=== PATIENT | female | born 1990 | race Caucasian/White ===

== ENCOUNTER → 2016-09-19 | Day surgery (SDC) | payer OTHER ==
[2016-09-03 13:39] VITALS: Ht 171.5 cm; Wt 68.2 kg
[~2016-09-19] VITALS: Ht 171.5 cm; Wt 68.2 kg
[~2016-09-19] MED LIST: ACET1TAB84 PO; ALBUAER19 INH; BUPIVACAINE 0.25% 2.5MG/ML PF 10 ML VIAL ONE; IBUP-1050 PO; IMD/2 PO; IOPAMIDOL INJ 61% 15 ML VIAL ONE; LIDOCAINE HCL 1% MPF 5 ML VIAL ONE; NAPR1TAB9 PO
--- NOTE | 2016-09-19 14:18 | History & Physical Bridge - [place] ---
H&P Re-Evaluation Bridge Note: I have examined the patient, reviewed the History & Physical and in the interval since the performance of the History & Physical I have noted the following changes of clinical significance: No changes noted
[2016-09-19 14:48] VITALS: TEMP 36.6
--- NOTE | 2016-09-19 14:54 | Discharge Instructions ---
Discharge Instructions Date of Service Sep 19, 2016. Visit Reason for Visit: Sacroiliitis Discharge Discharge Diagnosis / Problem: low back pain Discharge Goals Goal(s): Decrease discomfort, Improve function Activity Recommendations Activity Limitations: resume your previous activity Anesthesia . Post Anesthesia Instructions: If you have had General Anesthesia or IV Sedation: * Do not drive today. * Resume driving when surgeon permits. * Do not make important decisions or sign legal documents today. * Call surgeon for: 1. Temperature elevations greater than 101 degrees F. 2. Uncontrollable pain. 3. Excessive bleeding. 4. Persistent nausea and vomiting. 5. Medication intolerance (nausea, vomiting or rash). * For nausea and vomiting use only clear liquids such as: tea, soda, bouillon until nausea subsides, then gradually increase diet as tolerated. * If you have any concerns or questions, call your surgeon's office. If physician is unavailable and it is an emergency, call 911 or go to the nearest emergency room. . Diet Recommendations Recommended Home Diet: resume previous diet Procedures Procedures Performed: Left Sacroiliac Joint Injection Pending Studies Studies pending at discharge: no Medical Emergencies . Who to Call and When: Medical Emergencies: If at any time you feel your situation is an emergency, please call 911 immediately. . Non-Emergent Contact Non-Emergency issues call your: Specialist . . "Provider Documentation" section prepared by Hayder Linder. .
[2016-09-19 14:58] VITALS: BP 104/68; PULSE 79; O2SAT 97
--- NOTE | 2016-09-19 16:40 | OPERATIVE REPORT ---
DATE OF OPERATION: 09/19/2016 PREOPERATIVE DIAGNOSIS: Left sacroiliitis. POSTOPERATIVE DIAGNOSIS: Same. PROCEDURE: Left sacroiliac joint injection under fluoroscopic guidance. INDICATIONS: The patient is a 26-year-old female who has had sacroiliac pain for a number of years. She presents today for an injection to provide her with relief of the discomfort. PHYSICAL EXAMINATION: Pleasant female seated comfortably. She has point tenderness to palpation in the left SI joint. It is worse with extension and no problems with flexion. Normal motor and sensory examination. Positive Aria maneuver. CONSENT: Verbal and written consent was obtained from the patient. Risks and benefits were reviewed. Risks include, but are not limited to abscess, allergic reaction, and hematoma. The patient wishes to proceed. DESCRIPTION OF PROCEDURE: The patient was taken back to the special procedures room of the [facility], where she was maintained in a prone position. Backside was cleansed with Betadine x3 and a dry sterile dressing was applied. Fluoroscope was used to identify the left SI joint and the overlying skin was anesthetized with 2.5 mL of lidocaine 1% with a 25-gauge 1.5-inch needle. A 25-gauge 3.5-inch spinal needle was easily directed into the joint. Isovue-300 contrast 0.25 mL demonstrated intra-articular placement. She then underwent injection after negative aspiration of 40 mg Depo-Medrol and 1.5 mL of bupivacaine 0.25%. DISPOSITION: 1. The patient was taken out into the discharge recovery area, where she will be discharged home once discharge criteria have been met. 2. Follow up in the [facility] office in 2-4 weeks. I attest to the content of the Intraoperative Record and any orders documented therein. Any exception s are noted below.
== END | disposition home or self-care (01) ==
LOC: X.SURG 13:43
PROVIDERS: ATTEND Physical Medicine & Rehabilitation
DX: M46.1 Sacroiliitis, not elsewhere classified (principal)

== ENCOUNTER → 2016-11-12 | Outpatient (CLI) | payer OTHER ==
[~2016-11-12] MED LIST changes: -BUPIVACAINE 0.25% 2.5MG/ML PF 10 ML VIAL ONE; -IOPAMIDOL INJ 61% 15 ML VIAL ONE; -LIDOCAINE HCL 1% MPF 5 ML VIAL ONE
--- NOTE | 2016-11-12 10:31 | DIAGNOSTIC IMAGING REPORT ---
L-SPINE MIN 4 VIEWS ROUTINE CLINICAL HISTORY: M46.1 [id number] Hypermobility [id number] COMPARISON: None FINDINGS: Alignment of the lumbar spine is anatomic. Vertebral body heights are maintained. There is no fracture or suspicious lesion. Disc spaces are preserved. There is possible facet arthrosis within the lower lumbar spine. There is indistinctness and irregularity of both sacroiliac joints. IMPRESSION: 1. No lumbar spine fracture. 2. No evidence of degenerative disc disease by radiography. 3. Possible multilevel lower lumbar spine facet arthrosis. 4. Findings suggestive of bilateral sacroiliitis. Electronically signed by: Amos Hurtado M.D. 11/12/2016 10:30 AM Dictated Date/Time: 11/12/2016 10:28 AM
--- NOTE | 2016-11-12 10:32 | DIAGNOSTIC IMAGING REPORT ---
SI JOINTS 3 OR MORE VIEWS CLINICAL HISTORY: M46.1 [id number] Hypermobility [id number] COMPARISON STUDY: No previous studies for comparison. FINDINGS: There is indistinctness and irregularity along both sacroiliac joints, slightly greater on the right. No fracture or suspicious lesion is identified. There is indistinctness and irregularity at the symphysis pubis. IMPRESSION: 1. Findings suggestive of bilateral sacroiliitis. 2. Nonspecific irregularity along the symphysis pubis. Electronically signed by: Amos Hurtado M.D. 11/12/2016 10:31 AM Dictated Date/Time: 11/12/2016 10:30 AM
[2016-11-12 14:22] LABS: TOTAL IRON BINDING CAPACITY 317 mcg/dl (250-450)
[2016-11-15 05:09] LABS: ANTI-CENTROMERE AB <1.0 NEG AI (<1.0 NEG); ANTI-SS-A <1.0 NEG AI (<1.0 NEG); ANTI-SS-B <1.0 NEG AI (<1.0 NEG); DNA ds CRITHIDIA NEGATIVE (NEGATIVE); HLA-B27** TC 528X POSITIVE (NEGATIVE); Sm Antibody <1.0 NEG AI (<1.0 NEG)
== END | disposition home or self-care (01) ==
LOC: C.RAD1850 09:31
PROVIDERS: ATTEND Internal Medicine Rheumatology
DX: M25.50 Pain in unspecified joint (principal); M46.1 Sacroiliitis, not elsewhere classified; R19.7 Diarrhea, unspecified

== ENCOUNTER → 2016-11-15 | Outpatient (CLI) | payer OTHER ==
[2016-11-15 13:22] LABS: BASO % 0.1 %; BASO ABS # 0.01 K/uL (0-0.2); COMPLETE YES; EOS % 3.9 %; HEMATOCRIT 40.2 % (37-47); IG% 0.5 %; LYMPH % 22.3 %; LYMPH ABS # 1.98 K/uL (1.2-3.4); MEAN CELL VOLUME 87.2 fL (80-100); MEAN CORPUSCULAR HEMOGLOBIN 28.6 pg (25-34); MEAN CORPUSCULAR HGB CONC 32.8 g/dl (32-36); MEAN PLATELET VOLUME 8.5 fL (7.4-10.4); MONO % 8.2 %; PLATELET COUNT 302 K/uL (130-400); RED BLOOD COUNT 4.61 M/uL (4.2-5.4); WHITE BLOOD COUNT 8.88 K/uL (4.8-10.8)
[2016-11-15 14:04] LABS: ALT/SGPT 30 U/L (12-78); AST/SGOT 18 U/L (15-37); BLOOD UREA NITROGEN 11 mg/dl (7-18); BUN/CREATININE RATIO 16.1 (10-20); C-REACTIVE PROTEIN 1.36 mg/dl (0-0.29); CALCIUM 8.9 mg/dl (8.5-10.1); CARBON DIOXIDE 29 mmol/L (21-32); CHLORIDE 106 mmol/L (98-107); CREATININE 0.71 mg/dl (0.60-1.20); GLUCOSE 79 mg/dl (70-99); POTASSIUM 3.9 mmol/L (3.5-5.1); SODIUM 138 mmol/L (136-145)
[2016-11-15 14:08] LABS: ALKALINE PHOSPHATASE 82 U/L (45-117)
[2016-11-20 00:42] LABS: IGA SERUM 195 mg/dL (81-463); TIS TRANS IGA 1 U/mL (<4); VARICELLA ZOS VIR IGG VALUE >4000.00 INDEX
== END | disposition home or self-care (01) ==
LOC: C.LAB1850 12:07
PROVIDERS: ATTEND Registered Nurse
DX: Z01.84 Encounter for antibody response examination (principal); M46.1 Sacroiliitis, not elsewhere classified

== ENCOUNTER → 2016-11-25 | Day surgery (SDC) | payer OTHER ==
[2016-11-19 10:08] VITALS: Ht 172.7 cm; Wt 68.2 kg
[~2016-11-25] VITALS: Ht 172.7 cm; Wt 68.2 kg
[~2016-11-25] MED LIST changes: +LIDOCAINE HCL 2% 2 ML VIAL (20MG/ML) ONE; +PROPOFOL IV EMULSION 10 MG/ML 20 ML VIAL IV ONE; +SODIUM CHLORIDE 0.9% 500ML 500 ML IV ONE
--- NOTE | 2016-11-25 09:41 | Endo History and Physical ---
History & Physical Date of Service: Nov 25, 2016. Chief Complaint: DIARRHEA Referring Physician: HERNAN BASS History of Present Illness 26 yo CM who presents for colonoscopy secondary to diarrhea. Past Surgical History Hx Cardiac Surgery: No Hx Internal Defibrillator: No Hx Pacemaker: No Hx Abdominal Surgery: No Hx of Implantable Prosthesis: No Hx Cancer Surgery: No Hx Thoracic Surgery: No Hx Orthopedic: No Hx Urinary Tract Surgery: No Family History None Social History Smoking Status: Never Smoker Hx Substance Use: No Hx Alcohol Use: Yes (OCCASIONAL) Allergies Coded Allergies: No Known Allergies (Verified , 11/25/16) Current Medications Reported Home Medications Medications Dose Route/Sig Max Daily Dose Days Date Category Imodium (Loperamide HCl) 2 Mg Cap 2 Mg PO DIRECTED PRN 11/19/16 Reported Aleve (Naproxen) 220 Mg Tab 220 Mg PO DIRECTED PRN 11/19/16 Reported Tylenol Arthritis Ext Rel (Acetaminophen) 650 Mg Cplt 1,300 Mg PO Q8H PRN 12/02/15 Reported Advil (Ibuprofen) 200 Mg Tab 400 Mg PO Q8 PRN 12/02/15 Reported Ventolin Inhaler (Albuterol) Aers 2 Puffs INH QID PRN 12/02/15 Reported Vital Signs Weight (Kilograms): 68.18 Height (Feet): 5 Height (Inches): 8 Date Time Temp Pulse Resp B/P (MAP) Pulse Ox O2 Delivery O2 Flow Rate FiO2 11/25/16 09:31 36.8 85 24 130/77 (94) 99 Room Air Physical Exam General Appearance: WD/WN, no apparent distress Respiratory/Chest: Auscultation: breath sounds normal Cardiovascular: Heart Auscultation: RRR Abdomen: Bowel Sounds: normal Inspection & Palpation: soft, non-distended, no tenderness, guarding & rebound Assessment and Plan Assessment: 26 yo CM who presents for colonoscopy secondary to diarrhea. Plan: Proceed with colonoscopy.
--- NOTE | 2016-11-25 10:11 | Discharge Instructions ---
Endoscopy Patient Instructions Date / Procedure(s) Performed Nov 25, 2016. Colonoscopy Allergy Information Coded Allergies: No Known Allergies (Verified , 11/25/16) Discharge Date / Findings Nov 25, 2016. Terminal ileitis s/p biopsies Ulcerative pancolitis s/p biopsies Rectal polyp Medication Instructions 1) Start Prednisone 40mg by mouth daily for 1 week, then decrease by 5 mg by mouth weekly for 8 week taper 2) OK to resume all medications today as prescribed Reported Home Medications Medications Dose Route/Sig Max Daily Dose Days Date Category Imodium (Loperamide HCl) 2 Mg Cap 2 Mg PO DIRECTED PRN 11/19/16 Reported Aleve (Naproxen) 220 Mg Tab 220 Mg PO DIRECTED PRN 11/19/16 Reported Tylenol Arthritis Ext Rel (Acetaminophen) 650 Mg Cplt 1,300 Mg PO Q8H PRN 12/02/15 Reported Advil (Ibuprofen) 200 Mg Tab 400 Mg PO Q8 PRN 12/02/15 Reported Ventolin Inhaler (Albuterol) Aers 2 Puffs INH QID PRN 12/02/15 Reported Provider Instructions Activity Restrictions - No exercising or heavy lifting for 24 hours. - Do not drink alcohol the day of the procedure. - Do not drive a car or operate machinery until the day after the procedure. - Do not make any important decisions or sign important papers in 24 hours after the procedure. Following Day: - Return to full activity which may include returning to work/school. Diet Start your diet with liquids and light foods (jello, soup, juice, toast). Then eat your usual diet if not nauseated. Treatment For Common After Affects For mild abdominal pain, bloating, or excessive gas: - Rest - Eat lightly - Lie on right side Follow-Up Information Follow-up with HERNAN BASS as scheduled Anesthesia Information What You Should Know You have had a procedure that required some medicine to reduce anxiety and discomfort. This treatment is called moderate sedation. After receiving the treatment, you may be sleepy, but you will be able to breathe on your own. The effects of the treatment may last for several hours. Follow these instructions along with Activity/Diet recommendations noted above: * Do NOT do anything where dizziness or clumsiness would be dangerous. * Rest quietly at home today, then you can be up and about tomorrow. * Have a responsible person stay with you the rest of today. * You may have had an I.V. today. If so, you may take the dressing off later today. Recommendations Call your doctor if: * Trouble breathing * Continuous vomiting for more than 24 hours * Temperature above 101 degrees * Severe abdominal pain or bloating * Pain not relieved by pain medicine ordered * There is increased drainage or redness from any incision * A large amount of rectal bleeding greater than 2-3 tablespoons. (If you had a polyp/s removed or have hemorrhoids, a small amount of blood - from the rectum is to be expected.) * You have any unanswered questions or concerns. IN THE EVENT OF A SERIOUS EMERGENCY, GO TO THE NEAREST EMERGENCY ROOM Your discharge instructions were prepared by provider Ismael Nur. Patient Instructions Signature Page Gamal Cuellar Patient (or Guardian) Signature/Date: I have read and understand the instructions given to me by my caregivers. Caregiver/RN/Doctor Signature/Date: The above-named patient and/or guardian has received patient instructions on this date. + Original Patient Signature Page (only) stays with chart. Please make copy for patient.
--- NOTE | 2016-11-25 10:33 | Anesthesiology Progress Note ---
Anesthesia Post Op Note Date & Time Nov 25, 2016 at 10:33 Vital Signs Pain Intensity: 7 Vital Signs Past 12 Hours Date Time Temp Pulse Resp B/P (MAP) Pulse Ox O2 Delivery O2 Flow Rate FiO2 11/25/16 10:15 79 16 89/45 (60) 98 Room Air 11/25/16 09:31 36.8 85 24 130/77 (94) 99 Room Air Notes Mental Status: alert / awake / arousable, participated in evaluation Pt Amnestic to Procedure: Yes Nausea / Vomiting: adequately controlled Pain: adequately controlled Airway Patency, RR, SpO2: stable & adequate BP & HR: stable & adequate Hydration State: stable & adequate Anesthetic Complications: no major complications apparent
[2016-11-25 10:48] VITALS: BP 112/76; PULSE 79; O2SAT 98
--- NOTE | 2016-11-26 00:14 | GI REPORT ---
Procedure Date: 11/25/2016 9:47 AM THIS REPORT HAS BEEN AMENDED Addendum Number: 1 Addendum Date: 11/25/2016 10:19:00 AM Will start Prednisone taper: Take 40mg by mouth daily for 1 week, then decrease by 5 mg every week for total 8 week taper. Followup in our office for pre-testing for Remicade therapy. Procedure: Colonoscopy Indications: Chronic diarrhea Medicines: Monitored Anesthesia Care Complications: No immediate complications. Estimated Blood Loss: Estimated blood loss: none. Procedure: Pre-Anesthesia Assessment: - Prior to the procedure, a History and Physical was performed, and patient medications and allergies were reviewed. The patient's tolerance of previous anesthesia was also reviewed. The risks and benefits of the procedure and the sedation options and risks were discussed with the patient. All questions were answered, and informed consent was obtained. Prior Anticoagulants: The patient has taken no previous anticoagulant or antiplatelet agents. ASA Grade Assessment: II - A patient with mild systemic disease. After reviewing the risks and benefits, the patient was deemed in satisfactory condition to undergo the procedure. After I obtained informed consent, the scope was passed under direct vision. Throughout the procedure, the patient's blood pressure, pulse, and oxygen saturations were monitored continuously. The On-site loaner was introduced through the anus and advanced to the terminal ileum. The colonoscopy was performed without difficulty. The patient tolerated the procedure well. The quality of the bowel preparation was good. The terminal ileum, ileocecal valve, appendiceal orifice, and rectum were photographed. Findings: Localized inflammation, mild in severity and characterized by erosions was found in the terminal ileum. Biopsies were taken with a cold forceps for histology. A diffuse area of severely ulcerated mucosa was found in the entire colon. Biopsies were taken with a cold forceps for histology. A 5 mm polyp was found in the rectum. The polyp was sessile. The polyp was removed with a hot snare. Resection and retrieval were complete. Impression: - Ileitis. Biopsied. - Ulcerated mucosa in the entire examined colon. Biopsied. - One 5 mm polyp in the rectum, removed with a hot snare. Resected and retrieved. Recommendation: - Resume previous diet. - Continue present medications. - Repeat colonoscopy for surveillance based on pathology results. - Return to primary care physician as previously scheduled. Ismael Nur DO 11/25/2016 10:15:47 AM This report has been signed electronically. Note Initiated On: 11/25/2016 9:47 AM I attest to the content of the Intraoperative Record and orders documented therein, exceptions below Ismael Nur, 11/25/2016 10:19:59 AM This report has been signed electronically.
== END | disposition home or self-care (01) ==
LOC: C.GI 08:58
PROVIDERS: ATTEND Internal Medicine
DX: K52.9 Noninfective gastroenteritis and colitis, unspecified (principal); K62.1 Rectal polyp

== ENCOUNTER → 2017-01-16 | Outpatient (CLI) | payer OTHER ==
[~2017-01-16] MED LIST changes: -LIDOCAINE HCL 2% 2 ML VIAL (20MG/ML) ONE; -PROPOFOL IV EMULSION 10 MG/ML 20 ML VIAL IV ONE; -SODIUM CHLORIDE 0.9% 500ML 500 ML IV ONE
--- NOTE | 2017-01-16 10:42 | DIAGNOSTIC IMAGING REPORT ---
MRI OF THE SACROILIAC JOINTS WITHOUT IV CONTRAST CLINICAL HISTORY: Sacroiliitis. COMPARISON STUDY: Radiographs of the sacroiliac joints dated 11/12/2016. TECHNIQUE: MRI of the sacroiliac joints is performed utilizing various T1 and T2-weighted sequences in the axial and coronal planes. IV contrast was not administered for this examination. FINDINGS: There is no MRI evidence of fracture involving the sacrum or the visualized pelvis. Sclerotic degenerative change is seen at the sacroiliac joints. There is minimal subchondral cyst formation seen along the superior aspect of the left sacroiliac joint on axial STIR image #14. Only minimal marrow edema is seen within the medial left ilium on axial STIR image #16. Minimal marrow edema is also suggested along the right sacroiliac joint on the coronal images. No bony erosion is identified. No destructive bony lesion is seen. The overlying soft tissues are within normal limits. The pelvic viscera is normal as visualized. IMPRESSION: 1. There is predominantly sclerotic degenerative change seen involving the sacroiliac joints. Only faint marrow edema is identified. 2. No bony erosion is seen. Dictated: 01/16/2017 9:51 AM Transcribed: 01/16/2017 10:41 AM [facility] Electronically signed by: Goivanni Wiley M.D. 01/16/2017 10:42 AM Dictated Date/Time: 01/16/2017 9:51 AM
== END | disposition home or self-care (01) ==
LOC: C.MRI 08:48
PROVIDERS: ATTEND Internal Medicine Rheumatology
DX: M45.8 Ankylosing spondylitis sacral and sacrococcygeal region (principal)

== ENCOUNTER → 2017-04-14 | Outpatient (CLI) | payer OTHER ==
[2017-04-14 17:49] LABS: BASO % 0.2 %; BASO ABS # 0.03 K/uL (0-0.2); EOS % 9.9 %; EOS ABS # 1.46 K/uL (0-0.5); HEMATOCRIT 36.9 % (37-47); HEMOGLOBIN 12.7 g/dL (12.0-16.0); IG# 0.05 K/uL (0.00-0.02); LYMPH % 10.9 %; MEAN CELL VOLUME 85.6 fL (80-100); MEAN CORPUSCULAR HEMOGLOBIN 29.5 pg (25-34); MEAN CORPUSCULAR HGB CONC 34.4 g/dl (32-36); MEAN PLATELET VOLUME 8.3 fL (7.4-10.4); MONO ABS # 0.88 K/uL (0.11-0.59); NEUT % 72.7 %; NEUT ABS # 10.66 K/uL (1.4-6.5); PLATELET COUNT 263 K/uL (130-400); RED CELL DISTRIBUTION WIDTH CV 13.6 % (11.5-14.5); RED CELL DISTRIBUTION WIDTH SD 42.9 fL (36.4-46.3); WHITE BLOOD COUNT 14.68 K/uL (4.8-10.8)
[2017-04-14 18:16] LABS: ALBUMIN 3.3 gm/dl (3.4-5.0); ALT/SGPT 43 U/L (12-78); BLOOD UREA NITROGEN 12 mg/dl (7-18); CALCIUM 8.6 mg/dl (8.5-10.1); CARBON DIOXIDE 28 mmol/L (21-32); GLUCOSE 86 mg/dl (70-99); POTASSIUM 3.3 mmol/L (3.5-5.1); SODIUM 138 mmol/L (136-145)
[2017-04-14 18:19] LABS: ALKALINE PHOSPHATASE 76 U/L (45-117); AST/SGOT 35 U/L (15-37); TOTAL PROTEIN 7.1 gm/dl (6.4-8.2)
== END | disposition home or self-care (01) ==
LOC: C.LAB1850 17:01
PROVIDERS: ATTEND Registered Nurse
DX: R19.7 Diarrhea, unspecified (principal); K51.90 Ulcerative colitis, unspecified, without complications

== ENCOUNTER → 2017-04-16 | Outpatient (CLI) | payer OTHER | END | disposition home or self-care (01) | LOC: C.LABSPEC 08:10 | PROVIDERS: ATTEND Registered Nurse | DX: R19.7 Diarrhea, unspecified (principal); K51.90 Ulcerative colitis, unspecified, without complications ==

== ENCOUNTER → 2017-04-29 | Outpatient (CLI) | payer OTHER ==
[2017-04-29 09:32] LABS: BASO % 0.2 %; BASO ABS # 0.02 K/uL (0-0.2); EOS % 13.2 %; EOS ABS # 1.61 K/uL (0-0.5); HEMATOCRIT 39.2 % (37-47); HEMOGLOBIN 13.3 g/dL (12.0-16.0); IG# 0.04 K/uL (0.00-0.02); LYMPH % 17.6 %; LYMPH ABS # 2.14 K/uL (1.2-3.4); MEAN CELL VOLUME 87.3 fL (80-100); MEAN CORPUSCULAR HEMOGLOBIN 29.6 pg (25-34); MEAN CORPUSCULAR HGB CONC 33.9 g/dl (32-36); MEAN PLATELET VOLUME 8.6 fL (7.4-10.4); MONO % 7.1 %; MONO ABS # 0.86 K/uL (0.11-0.59); NEUT % 61.6 %; NEUT ABS # 7.49 K/uL (1.4-6.5); PLATELET COUNT 275 K/uL (130-400); RED CELL DISTRIBUTION WIDTH CV 14.1 % (11.5-14.5); RED CELL DISTRIBUTION WIDTH SD 44.6 fL (36.4-46.3); WHITE BLOOD COUNT 12.16 K/uL (4.8-10.8)
[2017-04-29 10:03] LABS: ALBUMIN 3.3 gm/dl (3.4-5.0); ALT/SGPT 26 U/L (12-78); BLOOD UREA NITROGEN 6 mg/dl (7-18); CALCIUM 9.1 mg/dl (8.5-10.1); CARBON DIOXIDE 28 mmol/L (21-32); CREATININE 0.67 mg/dl (0.60-1.20); GLUCOSE 98 mg/dl (70-99); POTASSIUM 3.3 mmol/L (3.5-5.1); SODIUM 138 mmol/L (136-145)
[2017-04-29 10:05] LABS: ALKALINE PHOSPHATASE 80 U/L (45-117); AST/SGOT 16 U/L (15-37); TOTAL PROTEIN 7.5 gm/dl (6.4-8.2)
== END | disposition home or self-care (01) ==
LOC: C.LAB1850 08:02
PROVIDERS: ATTEND Registered Nurse
DX: K51.90 Ulcerative colitis, unspecified, without complications (principal)

== ENCOUNTER → 2017-06-30 | Outpatient (CLI) | payer OTHER | END | disposition home or self-care (01) | LOC: C.LAB1850 14:59 | PROVIDERS: ATTEND Registered Nurse | DX: K51.90 Ulcerative colitis, unspecified, without complications (principal) ==

== ENCOUNTER → 2017-07-09 | Outpatient (CLI) | payer OTHER | END | disposition home or self-care (01) | LOC: C.PAPS 10:38 | PROVIDERS: ATTEND Physician Assistant | DX: Z12.4 Encounter for screening for malignant neoplasm of cervix (principal) ==

== ENCOUNTER 2017-08-26 12:34 | Inpatient (IN) | payer OTHER ==
[~2017-08-26] VITALS: Ht 172.7 cm; Wt 65.0 kg
[2017-08-26 13:25] VITALS: BP 129/88; PULSE 114; TEMP 37.1; O2SAT 98; Ht 172.7 cm; Wt 65.0 kg
[2017-08-26] MEDS ORDERED: ALBUTEROL HFA 8 GM INHALER INH PRN (13:30)
[2017-08-26] MEDS ORDERED: SODIUM CHLORIDE 0.9% 1000ML 1,000 ML IV SCH (14:00)
[2017-08-26 14:15] LABS: BASO % 0.2 %; BASO ABS # 0.02 K/uL (0-0.2); EOS % 5.4 %; EOS ABS # 0.52 K/uL (0-0.5); HEMATOCRIT 40.5 % (37-47); IG# 0.04 K/uL (0.00-0.02); LYMPH % 16.2 %; LYMPH ABS # 1.57 K/uL (1.2-3.4); MEAN CELL VOLUME 85.1 fL (80-100); MEAN CORPUSCULAR HEMOGLOBIN 29.4 pg (25-34); MEAN CORPUSCULAR HGB CONC 34.6 g/dl (32-36); MEAN PLATELET VOLUME 8.3 fL (7.4-10.4); MONO % 9.1 %; MONO ABS # 0.88 K/uL (0.11-0.59); NEUT % 68.7 %; NEUT ABS # 6.65 K/uL (1.4-6.5); PLATELET COUNT 277 K/uL (130-400); RED CELL DISTRIBUTION WIDTH CV 13.7 % (11.5-14.5); RED CELL DISTRIBUTION WIDTH SD 42.2 fL (36.4-46.3); WHITE BLOOD COUNT 9.68 K/uL (4.8-10.8)
--- NOTE | 2017-08-26 14:20 | History and Physical ---
History & Physical Date & Time of Service: August 26, 2017 at 14:06 Chief Complaint: Chronic Ulcerative Colitis Primary Care Physician: RV. Jean MD History of Present Illness Source: patient 27yo female with history of GIBSON, Sacroiliitis, ?Ankylosing spoldylitis presenting with GIBSON flare. Symptoms started on , acutely worsened on Friday. Patient reports 15-20 small volume bloody bowel movements/day, diffuse abdominal cramping as well as some nausea and 2 episodes of NB/NB vomiting last of which was last evening. Patient reports oral intolerance and a 10# unintentional weight loss over the last week. Last meal was a sandwich yesterday afternoon. Patient is presently taking Humira every other week and mesalamine BID. She reports adequate control of her joint symptoms with this regimen. She had been on Prednisone in the past and also Budesonide (Uceris) which she also reports good control. Patient was due to see her Organizational Effectiveness Consultant today for her scheduled Humira shot. Humira was held secondary to concern for infection vs flare. Patient denies fevers/chills. Denies sick contacts. Denies change in diet. Past Medical/Surgical History Medical Problems: (1) Chronic ulcerative colitis (2) Sacroiliac joint dysfunction of right side 3. ?Ankylosing spodylitis HLAB27+ Past surgical history Colonoscopy Family History Father with Type I DM Mother with breast cancer Social History Smoking Status: Never Smoker Smokeless Tobacco Use: No Alcohol Use: socially Drug Use: none Marital Status: single Housing status: lives with friends Occupational Status: [employer] student Allergies Coded Allergies: No Known Allergies (Verified , 11/25/16) Home Medications Scheduled PRN Acetaminophen (Tylenol Arthritis Ext Rel), 1,300 MG PO Q8H PRN for Pain Albuterol Inhaler (Ventolin Inhaler), 2 PUFFS INH QID PRN for SOB/Wheezing Ibuprofen (Advil), 400 MG PO Q8 PRN for Pain Loperamide Hcl (Imodium), 2 MG PO DIRECTED PRN for Diarrhea Naproxen (Aleve), 220 MG PO DIRECTED PRN for Pain Review of Systems Constitutional: + weight loss, + fatigue, No fever, No chills Eyes: No worsening of vision, No diplopia ENT: No hearing loss, No sore throat, No trouble swallowing Respiratory: No cough, No sputum, No shortness of breath, No dyspnea on exertion Cardiovascular: No chest pain, No palpitations Abdomen: + pain, + nausea, + vomiting, + diarrhea, + GI bleeding Musculoskeletal: No joint pain, No muscle pain Genitourinary - Female: No dysuria, No urinary frequency, No urinary urgency Neurologic: No weakness Hematologic / Lymphatic: No abnormal bleeding/bruising, No clotting problems Integumentary: No rash, No itch Physical Exam General: patient resting comfortably on chair, anxious in appearance, NAD, AA& O x 4 Skin: warm, dry, intact, no rashes or lesions HEENT: NC/AT, PERRL, EOMI, anicteric sclera, conjunctiva without injection, nares patent, mucus membranes slightly dry, no oropharyngeal lesions, neck supple, trachea midline, no thyromegaly, no LAD Heart: +S1/S2, regular, no m/r/g Lungs: equal air entry bilaterally, no rales/rhonchi/wheezes Abdomen: soft, NT/ND, no masses/organomegaly/ascites Extremities: warm, well perfused, no clubbing/cyanosis or edema, 2+ palpable pulses in UE/LE bilaterally Neuro: grossly normal Diagnostics Laboratory Results Results Past 24 Hours Test 08/26/17 13:55 Range/Units Impression Assessment and Plan 27yo female with GIBSON, Sacroiliitis presenting with GIBSON flare 1. GIBSON flare - -Solumedrol 20mg IV BID -Continue Mesalamine BID -Plan to increase Humira to weekly -Stool cultures -Consultation with Dr. Nur/GI - plan for colonoscopy in AM -Gentle IV fluids -Pain and nausea control 2. Asthma - stable, no wheeze, no respiratory distress -Albuterol PRN 3. F/E/N - NSS x 1 liter at 150mL/hr. Check electrolytes and replete as needed. NPO for now 4. Ppx - ambulation and IVF, no medical ppx at this time 5. Code - Full 6. Dispo - Admit to medical floor Resuscitation Status VTE Prophylaxis Will order VTE Prophylaxis: Yes Reason for no VTE drug order: Treatment not indicated
[2017-08-26 14:30] LABS: PTT PATIENT 28.5 SECONDS (21.0-31.0)
[2017-08-26 14:36] LABS: ALBUMIN 3.7 gm/dl (3.4-5.0); ALKALINE PHOSPHATASE 71 U/L (45-117); ALT/SGPT 25 U/L (12-78); AST/SGOT 18 U/L (15-37); BLOOD UREA NITROGEN 6 mg/dl (7-18); CALCIUM 9.1 mg/dl (8.5-10.1); CARBON DIOXIDE 23 mmol/L (21-32); CREATININE 0.81 mg/dl (0.60-1.20); GLUCOSE 82 mg/dl (70-99); PHOSPHORUS 3.2 mg/dl (2.5-4.9); POTASSIUM 3.6 mmol/L (3.5-5.1); SODIUM 137 mmol/L (136-145); TOTAL PROTEIN 8.1 gm/dl (6.4-8.2)
[2017-08-26] MEDS: METHYLPREDNISOLONE IV 20 MG in SYRINGE 0 ML IV SCH ×2 (15:41→20:55)
[2017-08-26 15:47] VITALS: BP 119/70; PULSE 97; TEMP 37.8; O2SAT 96
--- NOTE | 2017-08-26 16:11 | Gastrointestinal Consultation ---
Gastrointestinal Consultation Date of Consultation: August 26, 2017 Attending Physician: Dr. Collier Consulting Physician: Emeirta Leonard PA-C Reason for Consultation: Ulcerative Colitis History of Present Illness Patient is a 27 year old female with a past medical history of ulcerative colitis and +[id number] with ankylosing spondylitis who presented to the outpatient clinic today with worsening GI symptoms. Gamal was diagnosed with ulcerative colitis in November of 2016. She was noted to have mild disease activity of the colon. She has been on Lialda 2.4 gm BID for this issue. Due to the ankylosing spondylitis, she has been following with rheumatology and has been receiving Humira 40 mg injections every other week. She presented to her track walker today for her injection and this was not given as there reportedly was some type of concern about infection. Gamal is presently reporting that while she has improved from a rheumatologic perspective since beginning Humira, her GI symptoms have been worsening over the past 6 months. She has been utilizing corticosteroids in conjunction with her Lialda therapy for her IBD. She reports since completing an outpatient course of Uceris, her GI symptoms are worsening. She reports significant nausea & vomiting. She reports abdominal cramping (lower), loose stool, and rectal bleeding. Her last stool studies for C diff and enteric pathogens were performed in June 2017 and were negative. She has had issues with compliance with laboratory testing as an outpatient. The decision was made for hospitalization as patient reported she could not tolerate po intake and cannot hydrate. Her father is reportedly a airport duty manager. Her CBC is unremarkable. Her CRP is elevated at 4.03. ESR is 33. Past Medical/Surgical History Ulcerative Colitis, Ankylosing Spondylitis Past Medical History: Ulcerative Colitis, Ankylosing spondylitis Past Surgical History: colonoscopy Social History Smoking Status: Never Smoker Drug Use: none Marital Status: single Occupation Status: [employer] student Allergies Coded Allergies: No Known Allergies (Verified , 11/25/16) Current Medications Home Meds and Scripts Medications Dose Route/Sig Max Daily Dose Days Date Category Imodium (Loperamide HCl) 2 Mg Cap 2 Mg PO DIRECTED PRN 11/19/16 Reported Aleve (Naproxen) 220 Mg Tab 220 Mg PO DIRECTED PRN 11/19/16 Reported Tylenol Arthritis Ext Rel (Acetaminophen) 650 Mg Cplt 1,300 Mg PO Q8H PRN 12/02/15 Reported Advil (Ibuprofen) 200 Mg Tab 400 Mg PO Q8 PRN 12/02/15 Reported Ventolin Inhaler (Albuterol) Aers 2 Puffs INH QID PRN 12/02/15 Reported Review of Systems Constitutional: + fatigue, No fever, No chills Eyes: No problem reported ENT: No problem reported Respiratory: No cough, No shortness of breath Cardiac: No chest pain Abdomen: + pain, + nausea, + vomiting, + diarrhea, + GI bleeding Musculoskeletal: + joint pain Neuro: No problem reported Psych: No problem reported Skin: No problem reported Physical Exam Date Time Temp Pulse Resp B/P (MAP) Pulse Ox O2 Delivery O2 Flow Rate FiO2 08/26/17 13:25 37.1 114 16 129/88 98 Room Air General Appearance: WD/WN, no apparent distress Eyes: normal inspection, PERRL ENT: hearing grossly normal Respiratory/Chest: lungs clear, normal breath sounds Cardiovascular: regular rate, rhythm Abdomen: normal bowel sounds, soft, + tenderness (diffuse) Extremities: non-tender Neurologic/Psych: alert, oriented x 3 Skin: normal color Laboratory Results Last 24 Hours Test 08/26/17 13:55 White Blood Count 9.68 K/uL Red Blood Count 4.76 M/uL Hemoglobin 14.0 g/dL Hematocrit 40.5 % Mean Corpuscular Volume 85.1 fL Mean Corpuscular Hemoglobin 29.4 pg Mean Corpuscular Hemoglobin Concent 34.6 g/dl Platelet Count 277 K/uL Mean Platelet Volume 8.3 fL Neutrophils (%) (Auto) 68.7 % Lymphocytes (%) (Auto) 16.2 % Monocytes (%) (Auto) 9.1 % Eosinophils (%) (Auto) 5.4 % Basophils (%) (Auto) 0.2 % Neutrophils # (Auto) 6.65 K/uL Lymphocytes # (Auto) 1.57 K/uL Monocytes # (Auto) 0.88 K/uL Eosinophils # (Auto) 0.52 K/uL Basophils # (Auto) 0.02 K/uL RDW Standard Deviation 42.2 fL RDW Coefficient of Variation 13.7 % Immature Granulocyte % (Auto) 0.4 % Immature Granulocyte # (Auto) 0.04 K/uL Erythrocyte Sedimentation Rate 33 mm/hr Prothrombin Time 10.9 SECONDS Prothromb Time International Ratio 1.0 Activated Partial Thromboplast Time 28.5 SECONDS Partial Thromboplastin Ratio 1.1 Sodium Level 137 mmol/L Potassium Level 3.6 mmol/L Chloride Level 106 mmol/L Carbon Dioxide Level 23 mmol/L Anion Gap 8.0 mmol/L Blood Urea Nitrogen 6 mg/dl Creatinine 0.81 mg/dl Estimated GFR () 116.2 Estimated GFR (Non- 100.2 BUN/Creatinine Ratio 7.7 Random Glucose 82 mg/dl Calcium Level 9.1 mg/dl Phosphorus Level 3.2 mg/dl Magnesium Level 1.9 mg/dl Total Bilirubin 0.6 mg/dl Direct Bilirubin 0.2 mg/dl Aspartate Amino Transf (AST/SGOT) 18 U/L Alanine Aminotransferase (ALT/SGPT) 25 U/L Alkaline Phosphatase 71 U/L C-Reactive Protein 4.03 mg/dl Total Protein 8.1 gm/dl Albumin 3.7 gm/dl Impression Patient is a 27 year old female who is currently hospitalized with nausea, vomiting, and bloody diarrhea. She has a history of Ulcerative Colitis which she treats with Lialda 2.4 gm BID and Ankylosing spondylitis for which she is treated with Humira 40 mg injections every other week. Plan 1) Clear liquids today. NPO after midnight. Will place order for Golytely bowel prep to be given tonight in anticipation of colonoscopy on 08/27 for disease surveillance. 2) Check C diff & stool culture for enteric pathogens. 3) IV Solumedrol 20 mg BID. 4) Lialda 2.4 gm BID. 5) There is not a GI contraindication for holding this patient's Humira which is used primarily to treat her Ankylosing Spondylitis. She was due for an injection today. 6) Will plan for outpatient TPMT testing. If colonoscopy indicates worsening of IBD, would likely move to once weekly dosing for Humira injections in conjunction with a thiopurine. Further treatment decisions to be made based upon results of endoscopic evaluation. 7) Supportive care and IV fluid hydration per primary team. Thank you for allowing us to participate in the care of this patient. If you should have any further questions or concerns, do not hesitate to contact us. Agree with BUBBA Etienne as above Abd: Soft, NT, ND, +BS Continue current therapy Colonoscopy tomorrow to evaluate disease activity.
[2017-08-26] MEDS: LAVAGE SOLUTION 4000ML PO SCH (18:22)
[2017-08-26] MEDS ORDERED: hydrOXYzine HCL 25 MG TAB PO PRN (19:15)
[2017-08-26] MEDS: MESALAMINE 250 MG CAPCR PO SCH (20:57)
[2017-08-26] MEDS: ONDANSETRON INJ 2 MG/ML 2 ML VIAL IV PRN (21:25)
[2017-08-26 23:25] VITALS: BP 113/69; PULSE 77; TEMP 36.9; O2SAT 96
[2017-08-27] MEDS: LAVAGE SOLUTION 4000ML PO SCH (03:05)
[2017-08-27] MEDS: ONDANSETRON INJ 2 MG/ML 2 ML VIAL IV PRN ×2 (04:41→17:16)
[2017-08-27 07:39] VITALS: BP 120/78; PULSE 80; TEMP 36.6; O2SAT 98
[2017-08-27] MEDS ORDERED: ALPRAZOLAM 0.25 MG TAB PO STA (07:51)
[2017-08-27] MEDS: MESALAMINE 250 MG CAPCR PO SCH ×3 (08:20→20:46)
[2017-08-27] MEDS: METHYLPREDNISOLONE IV 20 MG in SYRINGE 0 ML IV SCH ×2 (08:20→20:48)
--- NOTE | 2017-08-27 08:54 | Gastroenterology Progress Note ---
Progress Note Date of Service: August 27, 2017 Subjective Pt evaluation today including: conversation w/ patient, physical exam, lab review, review of studies Patient is a 27 yo female hospitalized with nausea, vomiting, & diarrhea with a history of ulcerative pancolitis. She has nearly completed her bowel prep. She reports she is having clear bowel movements at this time. She denies rectal bleeding. She reports diffuse abdominal pain. She is very anxious. She offers no new complaints at present. Review of Systems Constitutional: + fever, + chills, + fatigue Eyes: No problem reported Respiratory: No cough, No sputum, No shortness of breath, No dyspnea on exertion Cardiac: No chest pain Abdomen: + pain, + nausea, + diarrhea Musculoskeletal: + joint pain Medications Current Inpatient Medications Medications (Trade) Dose Ordered Sig/Felisa Route Start Time Stop Time Status Last Admin Dose Admin Ondansetron HCl (Zofran Inj) 4 mg Q6H PRN IV 08/26/17 13:30 09/25/17 13:29 08/27/17 04:41 4 MG Albuterol (Ventolin Hfa Inhaler) 2 puffs QID PRN INH 08/26/17 13:30 09/25/17 13:29 Methylprednisolone Sodium Succinate 20 mg/Syringe 0.32 ml @ 1.5 mls/min Q12 IV 08/26/17 14:00 09/25/17 13:59 08/27/17 08:20 1.5 MLS/MIN Acetaminophen (Tylenol Tab) 325 mg Q4H PRN PO 08/26/17 14:15 09/25/17 14:14 Mesalamine (Pentasa Controlled Rel Cap) 250 mg TID PO 08/26/17 21:00 09/25/17 20:59 Hydroxyzine HCl (Vistaril Tab) 50 mg Q6 PRN PO 08/26/17 19:15 09/25/17 19:14 08/26/17 19:42 50 MG Objective Vital Signs Date Time Temp Pulse Resp B/P (MAP) Pulse Ox O2 Delivery O2 Flow Rate FiO2 08/27/17 07:39 36.6 80 16 120/78 (92) 98 Room Air 08/26/17 23:40 Room Air 08/26/17 23:25 36.9 77 16 113/69 (84) 96 Room Air 08/26/17 15:47 37.8 97 18 119/70 (86) 96 Room Air 08/26/17 15:40 Room Air 08/26/17 13:25 37.1 114 16 129/88 98 Room Air Physical Exam General Appearance: WD/WN, no apparent distress Eyes: normal inspection, PERRL Respiratory/Chest: lungs clear, normal breath sounds Cardiovascular: regular rate, rhythm Abdomen: normal bowel sounds, soft, + tenderness Neurologic/Psych: alert, oriented x 3 Skin: normal color Laboratory Results Last 24 Hours Test 08/26/17 13:55 White Blood Count 9.68 K/uL Red Blood Count 4.76 M/uL Hemoglobin 14.0 g/dL Hematocrit 40.5 % Mean Corpuscular Volume 85.1 fL Mean Corpuscular Hemoglobin 29.4 pg Mean Corpuscular Hemoglobin Concent 34.6 g/dl Platelet Count 277 K/uL Mean Platelet Volume 8.3 fL Neutrophils (%) (Auto) 68.7 % Lymphocytes (%) (Auto) 16.2 % Monocytes (%) (Auto) 9.1 % Eosinophils (%) (Auto) 5.4 % Basophils (%) (Auto) 0.2 % Neutrophils # (Auto) 6.65 K/uL Lymphocytes # (Auto) 1.57 K/uL Monocytes # (Auto) 0.88 K/uL Eosinophils # (Auto) 0.52 K/uL Basophils # (Auto) 0.02 K/uL RDW Standard Deviation 42.2 fL RDW Coefficient of Variation 13.7 % Immature Granulocyte % (Auto) 0.4 % Immature Granulocyte # (Auto) 0.04 K/uL Erythrocyte Sedimentation Rate 33 mm/hr Prothrombin Time 10.9 SECONDS Prothromb Time International Ratio 1.0 Activated Partial Thromboplast Time 28.5 SECONDS Partial Thromboplastin Ratio 1.1 Sodium Level 137 mmol/L Potassium Level 3.6 mmol/L Chloride Level 106 mmol/L Carbon Dioxide Level 23 mmol/L Anion Gap 8.0 mmol/L Blood Urea Nitrogen 6 mg/dl Creatinine 0.81 mg/dl Estimated GFR () 116.2 Estimated GFR (Non- 100.2 BUN/Creatinine Ratio 7.7 Random Glucose 82 mg/dl Calcium Level 9.1 mg/dl Phosphorus Level 3.2 mg/dl Magnesium Level 1.9 mg/dl Total Bilirubin 0.6 mg/dl Direct Bilirubin 0.2 mg/dl Aspartate Amino Transf (AST/SGOT) 18 U/L Alanine Aminotransferase (ALT/SGPT) 25 U/L Alkaline Phosphatase 71 U/L C-Reactive Protein 4.03 mg/dl Total Protein 8.1 gm/dl Albumin 3.7 gm/dl Assessment and Plan Patient is a 27 yo female with ulcerative colitis who is presently hospitalized with abdominal pain, diarrhea, nausea, & vomiting. 1) Finish prep immediately. Colonoscopy this afternoon for further evaluation. 2) IV fluids and supportive care per primary team. 3) Continue IV Solumedrol 20 mg BID. 4) Further recommendations pending results of endoscopic evaluation. Thank you for allowing us to participate in the care of this patient. If you should have any further questions or concerns, do not hesitate to contact us. Agree with BUBBA Etienne as above Abd: Soft, NT, ND, +BS Colonoscopy today for disease activity assessment.
--- NOTE | 2017-08-27 14:13 | Hospitalist Progress Note ---
Hospitalist Progress Note Date of Service August 27, 2017. (Michelle Leblanc ., SHAYEC) Subjective Pt evaluation today including: conversation w/ patient, conversation w/ family (mother at bedside), physical exam, chart review, lab review, review of inpatient medication list Pain: None PO Intake: NPO for colonoscopy Voiding: no voiding problems Patient is fatigued but otherwise feeling well. She denies any nausea, vomiting or abdominal pain currently. She is having now clear bowel movements following bowel prep. The patient is refusing C. diff and stool culture testing as she recently had these done about 2 months ago and is concerned regarding cast. The patient denies fevers, chills, sweats, chest pain, palpitations, claudication, cough, wheezing, shortness of breath, nausea, vomiting, abdominal pain, dysuria, hematuria, urinary retention, paralysis, weakness, numbness and tingling. Additional Comments: See HPI for pertinent positives and negatives. All other systems reviewed and negative. (Michelle Leblanc PA-C) Objective Vital Signs Date Time Temp Pulse Resp B/P (MAP) Pulse Ox O2 Delivery O2 Flow Rate FiO2 08/27/17 07:39 36.6 80 16 120/78 (92) 98 Room Air 08/27/17 07:30 Room Air 08/26/17 23:40 Room Air 08/26/17 23:25 36.9 77 16 113/69 (84) 96 Room Air 08/26/17 15:47 37.8 97 18 119/70 (86) 96 Room Air 08/26/17 15:40 Room Air (Michelle Leblanc, ZITA-C) Physical Exam Notes: General appearance: Well-developed, well-nourished, no apparent distress Head: Normocephalic, atraumatic Eyes: Normal inspection, PERRL, EOMI ENT: Normal ENT inspection, hearing grossly normal, pharynx normal Neck: Supple, no JVD, trachea midline Respiratory/Chest: Lungs clear to auscultation, normal breath sounds, no respiratory distress Cardiovascular: Regular rate & rhythm, no gallop, no murmur Abdomen/GI: Normal bowel sounds, non-tender, soft Extremities/Musculoskeletal: Normal inspection, no calf tenderness, no pedal edema Neurological/Psych: Alert, normal mood/affect, oriented x 3 Skin: Normal color, warm/dry, no rash (Michelle Leblanc .ANDERSON) Laboratory Results Last 24 Hours Test 08/26/17 13:55 White Blood Count 9.68 K/uL Red Blood Count 4.76 M/uL Hemoglobin 14.0 g/dL Hematocrit 40.5 % Mean Corpuscular Volume 85.1 fL Mean Corpuscular Hemoglobin 29.4 pg Mean Corpuscular Hemoglobin Concent 34.6 g/dl Platelet Count 277 K/uL Mean Platelet Volume 8.3 fL Neutrophils (%) (Auto) 68.7 % Lymphocytes (%) (Auto) 16.2 % Monocytes (%) (Auto) 9.1 % Eosinophils (%) (Auto) 5.4 % Basophils (%) (Auto) 0.2 % Neutrophils # (Auto) 6.65 K/uL Lymphocytes # (Auto) 1.57 K/uL Monocytes # (Auto) 0.88 K/uL Eosinophils # (Auto) 0.52 K/uL Basophils # (Auto) 0.02 K/uL RDW Standard Deviation 42.2 fL RDW Coefficient of Variation 13.7 % Immature Granulocyte % (Auto) 0.4 % Immature Granulocyte # (Auto) 0.04 K/uL Erythrocyte Sedimentation Rate 33 mm/hr Prothrombin Time 10.9 SECONDS Prothromb Time International Ratio 1.0 Activated Partial Thromboplast Time 28.5 SECONDS Partial Thromboplastin Ratio 1.1 Sodium Level 137 mmol/L Potassium Level 3.6 mmol/L Chloride Level 106 mmol/L Carbon Dioxide Level 23 mmol/L Anion Gap 8.0 mmol/L Blood Urea Nitrogen 6 mg/dl Creatinine 0.81 mg/dl Estimated GFR () 116.2 Estimated GFR (Non- 100.2 BUN/Creatinine Ratio 7.7 Random Glucose 82 mg/dl Calcium Level 9.1 mg/dl Phosphorus Level 3.2 mg/dl Magnesium Level 1.9 mg/dl Total Bilirubin 0.6 mg/dl Direct Bilirubin 0.2 mg/dl Aspartate Amino Transf (AST/SGOT) 18 U/L Alanine Aminotransferase (ALT/SGPT) 25 U/L Alkaline Phosphatase 71 U/L C-Reactive Protein 4.03 mg/dl Total Protein 8.1 gm/dl Albumin 3.7 gm/dl (Michelle Leblanc .SHAYEC) Assessment and Plan 27 y/o female with a history of ulcerative colitis, ankylosing spondylitis, and asthma who presents with acute UC flare. Ulcerative colitis flare--stable -Admit to med/surg -GI consulted, appreciate recs: Recommend colonoscopy to assess disease surveillance. Check C. diff and stool cultures. Solu-Medrol 20 mg IV BID. Continue mesalamine. Plan for outpatient TPMT testing. If colonoscopy indicates worsening UC, may need to increase Humira to weekly dosing and add a thiopurine. -NPO for colonoscopy this afternoon -Continue Solu-Medrol 20 mg IV BID -Continue mesalamine -Patient refuses C. diff and stool cultures Ankylosing spondylitis -Humira on hold. Pt currently takes every other week, was due this week Mild intermittent asthma--stable, no exacerbation -Albuterol PRN DVT prophylaxis -Encourage ambulation Code Status -Level I, FULL RESUSCITATION STATUS (Michelle Leblanc ., PA-C) Attending Attestation - Pt seen/examined, chart reviewed, care plan d/w ZITA Leblanc. I agree w/ the rivas components of her documentation. I saw the patient post-colonoscopy today. She c/o nausea. No emesis. Bloody stools have stopped. VSS afebrile gen - NAD neck - no JVD heart - RRR lungs - CTA b/l abd - Soft, NT, ND, BS+, no HSM A/P: Ulcerative colitis, severe, with evidence of pancolitis on colonoscopy today. r/o c. diff - await toxin. send stool cx. IV steroids for UC per GI recs. restart clears and advance diet as tolerated. labs in am. mother updated at bedside. José Luis Chambers MD (José Luis Chambers MD)
[2017-08-27 15:00] VITALS: BP 113/67; PULSE 73; TEMP 37.1; O2SAT 96
[2017-08-27] MEDS ORDERED: PROPOFOL IV EMULSION 10 MG/ML 20 ML VIAL ONE (15:53)
[2017-08-27] MEDS ORDERED: ATROPINE SULFATE 0.1 MG/ML 5ML SYR IV PRN (16:00)
[2017-08-27] MEDS ORDERED: EpHEDrine SULFATE INJ 50 MG/ML AMP IV PRN (16:00)
[2017-08-27] MEDS ORDERED: MIDAZOLAM HCL 1 MG/ML 2ML VIAL ONE (16:01)
--- NOTE | 2017-08-27 16:30 | GI REPORT ---
Patient Name: Gamal Cuellar Procedure Date: 08/27/2017 3:55 PM Date of : 1990 Admit Type: Inpatient Age: 27 Gender: Female Attending MD: Ismael Nur DO Procedure: Colonoscopy Providers: Ismael Nur DO Referring MD: José Luis Chambers Indications: Disease activity assessment of chronic ulcerative pancolitis Medicines: Monitored Anesthesia Care Complications: No immediate complications. Estimated Blood Loss: Estimated blood loss: none. Procedure: Pre-Anesthesia Assessment: - Prior to the procedure, a History and Physical was performed, and patient medications and allergies were reviewed. The patient's tolerance of previous anesthesia was also reviewed. The risks and benefits of the procedure and the sedation options and risks were discussed with the patient. All questions were answered, and informed consent was obtained. Prior Anticoagulants: The patient has taken no previous anticoagulant or antiplatelet agents. ASA Grade Assessment: III - A patient with severe systemic disease. After reviewing the risks and benefits, the patient was deemed in satisfactory condition to undergo the procedure. After I obtained informed consent, the scope was passed under direct vision. Throughout the procedure, the patient's blood pressure, pulse, and oxygen saturations were monitored continuously. The scope was introduced through the anus and advanced to the terminal ileum. The colonoscopy was performed without difficulty. The patient tolerated the procedure well. The quality of the bowel preparation was good. The terminal ileum, ileocecal valve, appendiceal orifice, and rectum were photographed. Findings: The perianal and digital rectal examinations were normal. Inflammation characterized by loss of vascularity and confluent ulcerations was found in a continuous and circumferential pattern from the rectum to the cecum. No sites were spared. This was severe, and when compared to previous examinations, the findings are worsened. Biopsies were taken with a cold forceps for histology. Fluid aspiration for Stool studies was performed in the entire colon. Impression: - Pancolitis ulcerative colitis. Inflammation was found from the rectum to the cecum. This was severe. The findings are worsened compared to previous examinations. Biopsied. Recommendation: - [facility] care. - Advance diet as tolerated. - Continue present medications. - Await pathology results. - Return to primary care physician as previously scheduled. Ismael Nur DO 08/27/2017 4:29:39 PM This report has been signed electronically. Note Initiated On: 08/27/2017 3:55 PM Number of Addenda: 0 I attest to the content of the Intraoperative Record and orders documented therein, exceptions below {[id number]}
--- NOTE | 2017-08-27 16:33 | Anesthesiology Progress Note ---
Anesthesia Post Op Note Date & Time August 27, 2017 at 16:33 Vital Signs Vital Signs Past 12 Hours Date Time Temp Pulse Resp B/P (MAP) Pulse Ox O2 Delivery O2 Flow Rate FiO2 08/27/17 15:27 36.8 80 20 124/67 (86) 96 Room Air 08/27/17 15:00 37.1 73 16 113/67 (82) 96 Room Air 08/27/17 07:39 36.6 80 16 120/78 (92) 98 Room Air 08/27/17 07:30 Room Air Notes Mental Status: alert / awake / arousable, participated in evaluation Pt Amnestic to Procedure: Yes Nausea / Vomiting: adequately controlled Pain: adequately controlled Airway Patency, RR, SpO2: stable & adequate BP & HR: stable & adequate Hydration State: stable & adequate Anesthetic Complications: no major complications apparent
[2017-08-27 17:15] VITALS: BP 121/70; PULSE 63; TEMP 37.1; O2SAT 98
[2017-08-27 19:15] VITALS: BP 114/66; PULSE 68; TEMP 36.7; O2SAT 97
[2017-08-27] MEDS: ACETAMINOPHEN 325 MG TAB PO PRN (19:44)
[2017-08-27 22:50] VITALS: BP 114/69; PULSE 76; TEMP 36.9; O2SAT 97
[2017-08-28 04:46] VITALS: BP 121/70; PULSE 52; TEMP 37.3; O2SAT 96
[2017-08-28 07:15] LABS: HEMATOCRIT 36.3 % (37-47); HEMOGLOBIN 12.5 g/dL (12.0-16.0); MEAN CELL VOLUME 84.2 fL (80-100); MEAN CORPUSCULAR HGB CONC 34.4 g/dl (32-36); MEAN PLATELET VOLUME 8.1 fL (7.4-10.4); PLATELET COUNT 312 K/uL (130-400); RED CELL DISTRIBUTION WIDTH CV 13.5 % (11.5-14.5); RED CELL DISTRIBUTION WIDTH SD 41.8 fL (36.4-46.3)
[2017-08-28 07:49] LABS: CALCIUM 8.6 mg/dl (8.5-10.1); CREATININE 0.79 mg/dl (0.60-1.20); POTASSIUM 3.9 mmol/L (3.5-5.1)
[2017-08-28 07:55] VITALS: BP 114/74; PULSE 61; TEMP 36.8; O2SAT 96
[2017-08-28] MEDS: MESALAMINE 250 MG CAPCR PO SCH ×3 (08:25→09:00)
[2017-08-28] MEDS: ACETAMINOPHEN 325 MG TAB PO PRN (08:26)
[2017-08-28] MEDS: METHYLPREDNISOLONE IV 20 MG in SYRINGE 0 ML IV SCH ×2 (08:26→20:00)
[2017-08-28 11:52] VITALS: BP 128/80; PULSE 54; TEMP 36.9; O2SAT 97
[2017-08-28] MEDS: DICYCLOMINE HCL 10 MG CAP PO SCH ×3 (12:03→23:23)
[2017-08-28] MEDS ORDERED: INFLIXIMAB IV SCH ×2 (13:00→17:30)
[2017-08-28] MEDS ORDERED: SODIUM CHLORIDE 0.9% IV SCH ×2 (13:00→17:30)
[2017-08-28 13:32] LABS: HEP C IGG 13 YRS+OLDER_RFLX NEG (NEG)
--- NOTE | 2017-08-28 13:48 | Gastroenterology Progress Note ---
Progress Note Date of Service: August 28, 2017 Subjective Pt evaluation today including: conversation w/ patient, physical exam, lab review, review of studies Patient is a 27 yo female with ulcerative colitis. She underwent a colonoscopy on 08/28/17 that indicated significant worsening of her colitis. She is negative for C diff. She is on Solumedrol. This has improved her symptoms of diarrhea. She is very upset about her medical situation. Review of Systems Constitutional: No fever, No chills Eyes: No problem reported ENT: No problem reported Respiratory: No cough, No shortness of breath, No dyspnea on exertion Cardiac: No chest pain Abdomen: + pain, + diarrhea (improving), No nausea, No vomiting Musculoskeletal: No joint pain Psych: No problem reported Endo: No problem reported Skin: No problem reported Medications Current Inpatient Medications Medications (Trade) Dose Ordered Sig/Felisa Route Start Time Stop Time Status Last Admin Dose Admin Ondansetron HCl (Zofran Inj) 4 mg Q6H PRN IV 08/26/17 13:30 09/25/17 13:29 08/27/17 17:16 4 MG Albuterol (Ventolin Hfa Inhaler) 2 puffs QID PRN INH 08/26/17 13:30 09/25/17 13:29 Methylprednisolone Sodium Succinate 20 mg/Syringe 0.32 ml @ 1.5 mls/min Q12 IV 08/26/17 14:00 09/25/17 13:59 08/28/17 08:26 1.5 MLS/MIN Acetaminophen (Tylenol Tab) 325 mg Q4H PRN PO 08/26/17 14:15 09/25/17 14:14 08/28/17 08:26 325 MG Hydroxyzine HCl (Vistaril Tab) 50 mg Q6 PRN PO 08/26/17 19:15 09/25/17 19:14 08/26/17 19:42 50 MG Dicyclomine HCl (Bentyl Cap) 10 mg Q6 PO 08/28/17 12:00 09/27/17 11:59 08/28/17 12:03 10 MG Infliximab 325 mg/ Sodium Chloride 282.5 ml @ 125 mls/hr ONE IV 08/28/17 13:00 09/27/17 12:59 UNV Objective Vital Signs Date Time Temp Pulse Resp B/P (MAP) Pulse Ox O2 Delivery O2 Flow Rate FiO2 08/28/17 11:52 36.9 54 15 128/80 (96) 97 Room Air 08/28/17 07:55 36.8 61 16 114/74 (87) 96 Room Air 08/28/17 07:25 Room Air 08/28/17 04:46 37.3 52 16 121/70 (87) 96 Room Air 08/27/17 23:59 Room Air 08/27/17 22:50 36.9 76 15 114/69 (84) 97 Room Air 08/27/17 19:15 36.7 68 16 114/66 (82) 97 Room Air 08/27/17 17:15 98 Room Air 08/27/17 17:15 37.1 63 16 121/70 (87) 98 Room Air 08/27/17 17:00 69 16 113/74 (87) 98 Room Air 08/27/17 16:45 66 16 113/64 (80) 97 Room Air 08/27/17 16:30 84 16 103/62 (76) 97 Room Air 08/27/17 15:27 36.8 80 20 124/67 (86) 96 Room Air 08/27/17 15:00 37.1 73 16 113/67 (82) 96 Room Air Physical Exam General Appearance: WD/WN, no apparent distress Eyes: normal inspection, PERRL Respiratory/Chest: lungs clear Cardiovascular: regular rate, rhythm Abdomen: normal bowel sounds, non tender, soft Extremities: non-tender Neurologic/Psych: alert, oriented x 3 Skin: normal color Laboratory Results Last 24 Hours Test 08/28/17 07:06 08/28/17 10:20 White Blood Count 11.30 K/uL Red Blood Count 4.31 M/uL Hemoglobin 12.5 g/dL Hematocrit 36.3 % Mean Corpuscular Volume 84.2 fL Mean Corpuscular Hemoglobin 29.0 pg Mean Corpuscular Hemoglobin Concent 34.4 g/dl RDW Standard Deviation 41.8 fL RDW Coefficient of Variation 13.5 % Platelet Count 312 K/uL Mean Platelet Volume 8.1 fL Sodium Level 140 mmol/L Potassium Level 3.9 mmol/L Chloride Level 108 mmol/L Carbon Dioxide Level 26 mmol/L Anion Gap 6.0 mmol/L Blood Urea Nitrogen 9 mg/dl Creatinine 0.79 mg/dl Est Creatinine Clear Calc Drug Dose 108.8 ml/min Estimated GFR () 119.7 Estimated GFR (Non- 103.3 BUN/Creatinine Ratio 11.6 Random Glucose 136 mg/dl Calcium Level 8.6 mg/dl HIV (1&2) Ab and P24 Ag, 4th Gener NEG Assessment and Plan Patient is a 27 yo female with ulcerative colitis who is presently hospitalized with abdominal pain, diarrhea, nausea, & vomiting. A colonoscopy on 08/29 indicated worsening of her colitis with moderate to severe pancolitis. After much deliberation, patient is agreeable to transition to Remicade from Humira. She will receive her first dose today at 5 mg/kg. We will contact her on discharge to arrange the next infusion of outpatient Remicade in 2 weeks. We will discontinue her Lialda as well. She will be discharged on Uceris 9 mg po daily x 8 weeks. This plan was discussed with the patient and the patient's father as well. Labs have been checked for Hepatitis status & HIV as well. She is up to date with TB testing with her last performed in December 2016. Thank you for allowing us to participate in the care of this patient. If you should have any further questions or concerns, do not hesitate to contact us. Agree with BUBBA Etienne as above Abd: Soft, tender throughout, ND, +BS Remicade 5mg/kg IV infusion today Continue Solu-Medrol 20mg IV BID Continue supportive care
[2017-08-28 15:00] VITALS: BP 106/63; PULSE 74; TEMP 36.6; O2SAT 97
--- NOTE | 2017-08-28 15:21 | Hospitalist Progress Note ---
Hospitalist Progress Note Date of Service August 28, 2017. (Michelle Leblanc ., ANDERSON) Subjective Pt evaluation today including: conversation w/ patient, conversation w/ family (mother, girlfriend at bedside), physical exam, chart review, lab review, review of studies, conversation w/ life consultant, review of inpatient medication list Patient complains of intermittent abdominal cramping, but states this is improving with Bentyl and heating pad. She denies any nausea or vomiting. She states her appetite is mildly decreased compared to normal. She continues to have diarrhea today, but it is no longer bloody. The patient denies fevers, chills, sweats, chest pain, palpitations, claudication, cough, wheezing, shortness of breath, nausea, vomiting, dysuria, hematuria, urinary retention, paralysis, weakness, numbness and tingling. Additional Comments: See HPI for pertinent positives and negatives. All other systems reviewed and negative. (Michelle Leblanc ., ANDERSON) Objective Vital Signs Date Time Temp Pulse Resp B/P (MAP) Pulse Ox O2 Delivery O2 Flow Rate FiO2 08/28/17 11:52 36.9 54 15 128/80 (96) 97 Room Air 08/28/17 07:55 36.8 61 16 114/74 (87) 96 Room Air 08/28/17 07:25 Room Air 08/28/17 04:46 37.3 52 16 121/70 (87) 96 Room Air 08/27/17 23:59 Room Air 08/27/17 22:50 36.9 76 15 114/69 (84) 97 Room Air 08/27/17 19:15 36.7 68 16 114/66 (82) 97 Room Air 08/27/17 17:15 98 Room Air 08/27/17 17:15 37.1 63 16 121/70 (87) 98 Room Air 08/27/17 17:00 69 16 113/74 (87) 98 Room Air 08/27/17 16:45 66 16 113/64 (80) 97 Room Air 08/27/17 16:30 84 16 103/62 (76) 97 Room Air 08/27/17 15:27 36.8 80 20 124/67 (86) 96 Room Air (Michelle Leblanc PA-C) Physical Exam Notes: General appearance: Well-developed, well-nourished, no apparent distress Head: Normocephalic, atraumatic Eyes: Normal inspection, PERRL, EOMI ENT: Normal ENT inspection, hearing grossly normal, pharynx normal Neck: Supple, no JVD, trachea midline Respiratory/Chest: Lungs clear to auscultation, normal breath sounds, no respiratory distress Cardiovascular: Regular rate & rhythm, no gallop, no murmur Abdomen/GI: Normal bowel sounds, non-tender, soft Extremities/Musculoskeletal: Normal inspection, no calf tenderness, no pedal edema Neurological/Psych: Alert, normal mood/affect, oriented x 3 Skin: Normal color, warm/dry, no rash (Michelle Leblanc PA-C) Laboratory Results Last 24 Hours Test 08/28/17 07:06 08/28/17 10:20 White Blood Count 11.30 K/uL Red Blood Count 4.31 M/uL Hemoglobin 12.5 g/dL Hematocrit 36.3 % Mean Corpuscular Volume 84.2 fL Mean Corpuscular Hemoglobin 29.0 pg Mean Corpuscular Hemoglobin Concent 34.4 g/dl RDW Standard Deviation 41.8 fL RDW Coefficient of Variation 13.5 % Platelet Count 312 K/uL Mean Platelet Volume 8.1 fL Sodium Level 140 mmol/L Potassium Level 3.9 mmol/L Chloride Level 108 mmol/L Carbon Dioxide Level 26 mmol/L Anion Gap 6.0 mmol/L Blood Urea Nitrogen 9 mg/dl Creatinine 0.79 mg/dl Est Creatinine Clear Calc Drug Dose 108.8 ml/min Estimated GFR () 119.7 Estimated GFR (Non- 103.3 BUN/Creatinine Ratio 11.6 Random Glucose 136 mg/dl Calcium Level 8.6 mg/dl Hepatitis B Surface Antigen NEG Hepatitis B Surface Antibody NEG Hepatitis C Antibody NEG HIV (1&2) Ab and P24 Ag, 4th Gener NEG (Michelle Leblanc, PA-C) Diagnostic Results Colonoscopy: Procedure: Colonoscopy Providers: Ismael Nur DO Referring MD: José Luis Chambers Indications: Disease activity assessment of chronic ulcerative pancolitis Medicines: Monitored Anesthesia Care Complications: No immediate complications. Estimated Blood Loss: Estimated blood loss: none. Procedure: Pre-Anesthesia Assessment: - Prior to the procedure, a History and Physical was performed, and patient medications and allergies were reviewed. The patient's tolerance of previous anesthesia was also reviewed. The risks and benefits of the procedure and the sedation options and risks were discussed with the patient. All questions were answered, and informed consent was obtained. Prior Anticoagulants: The patient has taken no previous anticoagulant or antiplatelet agents. ASA Grade Assessment: III - A patient with severe systemic disease. After reviewing the risks and benefits, the patient was deemed in satisfactory condition to undergo the procedure. After I obtained informed consent, the scope was passed under direct vision. Throughout the procedure, the patient's blood pressure, pulse, and oxygen saturations were monitored continuously. The scope was introduced through the anus and advanced to the terminal ileum. The colonoscopy was performed without difficulty. The patient tolerated the procedure well. The quality of the bowel preparation was good. The terminal ileum, ileocecal valve, appendiceal orifice, and rectum were photographed. Findings: The perianal and digital rectal examinations were normal. Inflammation characterized by loss of vascularity and confluent ulcerations was found in a continuous and circumferential pattern from the rectum to the cecum. No sites were spared. This was severe, and when compared to previous examinations, the findings are worsened. Biopsies were taken with a cold forceps for histology. Fluid aspiration for Stool studies was performed in the entire colon. Impression: - Pancolitis ulcerative colitis. Inflammation was found from the rectum to the cecum. This was severe. The findings are worsened compared to previous examinations. Biopsied. Recommendation: - [facility]. - Advance diet as tolerated. - Continue present medications. - Await pathology results. - Return to primary care physician as previously scheduled. (Michelle Leblanc ., PA-C) Assessment and Plan 27 y/o female with a history of ulcerative colitis, ankylosing spondylitis, and asthma who presents with acute UC flare. Ulcerative colitis flare--stable -Admit to med/surg -GI consulted, appreciate recs: Spoke extensively with Emerita Curry. Will transition patient from Humira to Remicade, first dose now. Hepatitis panel, HIV and varicella zoster testing pending, can vaccinate as needed as outpatient. Will discharge with Uceris x 8 weeks. Stop mesalamine as she now has severe disease. -Pt tolerating regular diet -Continue Solu-Medrol 20 mg IV BID while inpatient, discharge on Uceris as above -Mesalamine d/c'd -Bentyl 10 mg PO q6h per GI for cramping -C. diff negative. Stool cultures negative Ankylosing spondylitis -Transitioning Humira to Remicade Mild intermittent asthma--stable, no exacerbation -Albuterol PRN DVT prophylaxis -Encourage ambulation Code Status -Level I, FULL RESUSCITATION STATUS Dispo -Anticipate discharge tomorrow as pt getting Remicade infusion tonight (Michelle Leblanc ., PAGermaineC) Attending Attestation - Pt seen/examined, chart reviewed, care plan d/w ZITA Leblanc. I agree w/ the rivas components of her documentation. Pt with no further rectal bleeding but has had multiple diarrhea stools today along w/ abd cramps. Multiple questions from pt's mother and herself about diet, support groups, etc. She is ready to initiate remicade. VSS no fever gen - NAD, anxious/depressed mouth - no ulcers heart - RRR lungs - CTA b/l abd - soft, NT, ND, BS+ ext - no edema A/P: UC with severe flare - cont steroids; start remicade today. Diet as tolerated. Bentyl q6h. PO steroid taper after discharge. Hand Therapist consult for diet counseling. Info on [facility] given. All questions answered. José Luis Chambers MD (José Luis Chambers MD)
[2017-08-28] MEDS ORDERED: INFLIXIMAB 100 MG/10 ML VIAL IV SCH (16:30)
[2017-08-28] MEDS ORDERED: DiphenhydrAMINE HCL 50 MG/ML VIAL IV PRN (17:00)
[2017-08-28] MEDS ORDERED: EpINEphrine INJ 1MG/ML AMP 1 MG/ML AMP SC PRN (17:00)
[2017-08-28] MEDS ORDERED: HYDROCORTISONE SOD SUCCINATE 100 MG/2 ML VIAL IV PRN (17:00)
[2017-08-28] MEDS ORDERED: [UNRECOGNIZED DRUG - OTHER] IV SCH (17:00)
[2017-08-28 23:01] VITALS: BP 96/60; PULSE 65; TEMP 37; O2SAT 96
[2017-08-29] MEDS: DICYCLOMINE HCL 10 MG CAP PO SCH ×2 (05:46→12:03)
[2017-08-29 06:40] LABS: HEMATOCRIT 36.3 % (37-47); HEMOGLOBIN 12.3 g/dL (12.0-16.0); MEAN CELL VOLUME 85.2 fL (80-100); MEAN CORPUSCULAR HEMOGLOBIN 28.9 pg (25-34); MEAN CORPUSCULAR HGB CONC 33.9 g/dl (32-36); MEAN PLATELET VOLUME 8.1 fL (7.4-10.4); PLATELET COUNT 311 K/uL (130-400); RED CELL DISTRIBUTION WIDTH CV 13.7 % (11.5-14.5); RED CELL DISTRIBUTION WIDTH SD 42.5 fL (36.4-46.3); WHITE BLOOD COUNT 11.51 K/uL (4.8-10.8)
[2017-08-29 07:02] VITALS: BP 117/70; PULSE 51; TEMP 37.1; O2SAT 98
[2017-08-29 07:19] LABS: CALCIUM 8.7 mg/dl (8.5-10.1); CREATININE 0.72 mg/dl (0.60-1.20); POTASSIUM 3.8 mmol/L (3.5-5.1)
[2017-08-29 08:00] VITALS: O2SAT 98
[2017-08-29] MEDS: METHYLPREDNISOLONE IV 20 MG in SYRINGE 0 ML IV SCH (08:14)
[2017-08-29] MEDS ORDERED: BUDE1TAB PO (10:52)
[2017-08-29] MEDS ORDERED: PRLSR20 PO (10:52)
[2017-08-29] MEDS ORDERED: BNT10 PO (10:52)
--- NOTE | 2017-08-29 11:00 | Discharge Instructions ---
Discharge Instructions Date of Service August 29, 2017. Admission Reason for Admission: Ulcerative Colitis Discharge Discharge Diagnosis / Problem: Ulcerative Colitis - severe flare, but slowly improving Discharge Goals Goal(s): Learn about illness, Diagnostic testing, Therapeutic intervention Activity Recommendations Activity Limitations: resume your previous activity (as tolerated) . Instructions / Follow-Up Instructions / Follow-Up From Dr. Chambers - 1. Ulcerative colitis - please do the following - * START Uceris 9mg once daily; take with food; you will take this for 8 weeks; prescription sent to [facility] for you. * STOP your Lialda (mesalamine) * Follow-up with Dr. Nur/Gisselle Suggs within 2 weeks for next remicade infusion * their office will be contacting you with appointment date/time 2. For abdominal cramping you can take bentyl 10mg every 6 hours as needed/as desired. Prescription sent to [facility] for you. 3. To help prevent stomach irritation from the steroid please take omeprazole 20mg once daily in the morning. 4. Again follow-up with Dr. Nur's office for any needs related to your Ulcerative Colitis. 5. Would recommend the following supplements for your overall health - * [id number] multivitamin daily * vitamin D, 1000 IU each day 6. Return to [facility] if - * you develop fever over 100.5 degrees * you develop severe abdominal pain * you develop severe rectal bleeding * vomiting * any other concerns Current Hospital Diet Patient's current hospital diet: Regular Diet Discharge Diet Recommended Diet: Low Fiber Diet Procedures Procedures Performed: Colonoscopy with stool aspirate and biopsy. Biopsies showed evidence of severe colitis but no infectious process. Pending Studies Studies pending at discharge: yes List of pending studies: Hepatitis testing Varicella testing Medical Emergencies . Who to Call and When: Medical Emergencies: If at any time you feel your situation is an emergency, please call 911 immediately. . Non-Emergent Contact Non-Emergency issues call your: [employer]fit[employer] Supervisor Call Non-Emergent contact if: temperature is above 100.5, your pain is not controlled, your pain is worsening, your pain is unusual for you, your pain is concerning you, you have any medication questions . . "Provider Documentation" section prepared by José Luis Chambers. .
[2017-08-29 11:03] VITALS: BP 117/70; PULSE 51; TEMP 37.1; O2SAT 98
--- NOTE | 2017-08-29 11:04 | Gastroenterology Progress Note ---
Progress Note Date of Service: August 29, 2017 Subjective Pt evaluation today including: conversation w/ patient, physical exam, chart review, lab review, review of inpatient medication list Patient reports feeling well today. She denies any abdominal pain or bleeding today. Reports 4 loose stools this morning. Tolerating diet. Reports readiness for discharge. Continues Solu-Medrol 20 mg IV BID. Infused with Remicade last evening with the first of 3 induction doses. Tolerated infusion well. Review of Systems Constitutional: No fever, No chills Respiratory: No problem reported Cardiac: No problem reported Abdomen: + see HPI Psych: No problem reported Medications Current Inpatient Medications Medications (Trade) Dose Ordered Sig/Felisa Route Start Time Stop Time Status Last Admin Dose Admin Ondansetron HCl (Zofran Inj) 4 mg Q6H PRN IV 08/26/17 13:30 09/25/17 13:29 08/27/17 17:16 4 MG Albuterol (Ventolin Hfa Inhaler) 2 puffs QID PRN INH 08/26/17 13:30 09/25/17 13:29 Methylprednisolone Sodium Succinate 20 mg/Syringe 0.32 ml @ 1.5 mls/min Q12 IV 08/26/17 14:00 09/25/17 13:59 08/29/17 08:14 1.5 MLS/MIN Acetaminophen (Tylenol Tab) 325 mg Q4H PRN PO 08/26/17 14:15 09/25/17 14:14 08/28/17 08:26 325 MG Hydroxyzine HCl (Vistaril Tab) 50 mg Q6 PRN PO 08/26/17 19:15 09/25/17 19:14 08/26/17 19:42 50 MG Dicyclomine HCl (Bentyl Cap) 10 mg Q6 PO 08/28/17 12:00 09/27/17 11:59 08/29/17 05:46 10 MG Objective Vital Signs Date Time Temp Pulse Resp B/P (MAP) Pulse Ox O2 Delivery O2 Flow Rate FiO2 08/29/17 08:00 98 Room Air 08/29/17 07:02 37.1 51 18 117/70 (86) 98 Room Air 08/28/17 23:20 Room Air 08/28/17 23:01 37.0 65 16 96/60 (72) 96 Room Air 08/28/17 15:55 Room Air 08/28/17 15:00 36.6 74 16 106/63 (77) 97 Room Air 08/28/17 11:52 36.9 54 15 128/80 (96) 97 Room Air Physical Exam General Appearance: no apparent distress Eyes: EOMI ENT: hearing grossly normal Respiratory/Chest: lungs clear, normal breath sounds, no respiratory distress Cardiovascular: regular rate, rhythm Abdomen: normal bowel sounds, non tender, soft Extremities: no pedal edema Neurologic/Psych: alert, normal mood/affect, oriented x 3 Skin: warm/dry Laboratory Results Last 24 Hours Test 08/29/17 06:31 White Blood Count 11.51 K/uL Red Blood Count 4.26 M/uL Hemoglobin 12.3 g/dL Hematocrit 36.3 % Mean Corpuscular Volume 85.2 fL Mean Corpuscular Hemoglobin 28.9 pg Mean Corpuscular Hemoglobin Concent 33.9 g/dl RDW Standard Deviation 42.5 fL RDW Coefficient of Variation 13.7 % Platelet Count 311 K/uL Mean Platelet Volume 8.1 fL Sodium Level 139 mmol/L Potassium Level 3.8 mmol/L Chloride Level 107 mmol/L Carbon Dioxide Level 26 mmol/L Anion Gap 6.0 mmol/L Blood Urea Nitrogen 8 mg/dl Creatinine 0.72 mg/dl Est Creatinine Clear Calc Drug Dose 119.4 ml/min Estimated GFR () 134.0 Estimated GFR (Non- 115.6 BUN/Creatinine Ratio 10.9 Random Glucose 107 mg/dl Calcium Level 8.7 mg/dl Magnesium Level 2.1 mg/dl Assessment and Plan Patient is a 27 yo female with ulcerative colitis who is presently hospitalized with abdominal pain, diarrhea, nausea, & vomiting. A colonoscopy on 08/29 indicated worsening of her colitis with moderate to severe pancolitis. 1. Okay for discharge from GI standpoint. 2. Outpatient follow up next week to be arranged by our office. 3. Continue Remicade induction doses at week 2, 6 and then every 8 weeks at 5 mg /kg IV thereafter. 4. Home with Uceris 9 mg daily for 8 weeks. 5. Diet as tolerated. Avoid NSAIDs. 6. Discussed with Dr. Chambers. Agree with SHELIA Fragoso as above Patient was discharged prior to my evaluation
[2017-08-29 16:22] LABS: HEPATITIS A IGM TC 51813E NON-REACTIVE (NON-REACTIVE); HEPATITIS B CORE IGM TC51854R NON-REACTIVE (NON-REACTIVE)
== END 2017-08-29 12:34 | disposition home or self-care (01) | DRG 387 ==
LOC: C.MSW 13:03
PROVIDERS: ADMIT Internal Medicine; ATTEND Internal Medicine
PROC: 0D9E8ZX Drainage of Large Intestine, Via Natural or Artificial Opening Endoscopic, Diagnostic (ICD-10-PCS; principal; 2017-08-27 15:20)
PROC: 0DBE8ZX Excision of Large Intestine, Via Natural or Artificial Opening Endoscopic, Diagnostic (ICD-10-PCS; principal; 2017-08-27 15:20)
DX: K51.00 Ulcerative (chronic) pancolitis without complications (principal); M45.8 Ankylosing spondylitis sacral and sacrococcygeal region; R76.8 Other specified abnormal immunological findings in serum; J45.20 Mild intermittent asthma, uncomplicated; Z79.899 Other long term (current) drug therapy

== ENCOUNTER 2017-11-23 16:03 | Emergency (ER) | payer OTHER ==
[~2017-11-23] VITALS: Ht 172.7 cm; Wt 63.9 kg
[~2017-11-23 16:03] MED LIST changes: +BNT10 PO; +BUDE1TAB PO; -NAPR1TAB9 PO; +PRLSR20 PO
[2017-11-23 16:07] VITALS: TEMP 37.4; Ht 172.7 cm; Wt 63.9 kg
[2017-11-23] MEDS ORDERED: SODIUM CHLORIDE 0.9% 1000ML 1,000 ML IV STA ×2 (16:32→17:41)
[2017-11-23] MEDS ORDERED: SODIUM CHLORIDE 0.9% 1000ML 1,000 ML IV ONE (16:32)
[2017-11-23] MEDS ORDERED: ONDANSETRON INJ 2 MG/ML 2 ML VIAL IV STA (16:32)
--- NOTE | 2017-11-23 16:54 | EMERGENCY ROOM VISIT NOTE ---
History Report prepared by Tish: Maranda Carroll Under the Supervision of: Dr. Reinaldo Elena M.D. First contact with patient: 16:22 Chief Complaint: ABDOMINAL PAIN Stated Complaint: ULCERATIVE COLITIS FLARE History of Present Illness The patient is a 27 year old female with a history of ulcerative colitis who presents to the Emergency Room with complaints of worsening cramping abdominal pain secondary to her ulcerative colitis that started a few days ago. The patient states that she was diagnosed with ulcerative colitis a year ago and has been seeing Dr. Nur for treatment. The patient notes that she has been steroid dependent and she frequently experiences has GI flares. She reports that in August 2017 she was hospitalized for 4 days for a bad flare, after which she had another colonoscopy. The patient also states that she traveled to [place] and was unable to take her UCERIS for 5 days 1 week ago, so her flare worsened quickly. The patient states that she had her UCERIS refilled afterward and has been on it for 4 days. She notes that she usually feels better after 2 days of taking the medication, but she claims that she still doesn't feel good now. She currently rates her pain a 7/10. The patient also complains of 30-40 episodes of diarrhea a day and nausea, which she took Dicyclomine for. Her girlfriend adds that the patient has lost 10 pounds in 3 days and has been unable to drink anything. After trying to drink Gatorade today, the patient vomited 5 times. The patient denies any urinary symptoms and any chance of being . Source of History: patient, spouse/significant other (girlfriend) Onset: a few days ago Position: abdomen Symptom Intensity: 7/10 Quality: cramping, other (pain) Timing: worsening Associated Symptoms: + nausea, + vomiting, + diarrhea, No urinary symptoms Note: Additional symptoms: weight loss Review of Systems See HPI for pertinent positives & negatives. A total of 10 systems reviewed and were otherwise negative. Past Medical & Surgical Medical Problems: (1) Asthma (2) Chronic ulcerative colitis Old medical records were reviewed. Nurse's notes were reviewed and I agree with. Family History FH: heart disease FHx: cancer FHx: diabetes mellitus Social History Smoking Status: Never Smoker Drug Use: none Marital Status: in relationship Occupation Status: [employer] student Current/Historical Medications Scheduled Budesonide (Uceris), 9 MG PO DAILY Infliximab (Remicade), 1 DOSE IV Q4-6WKS Medroxyprogesterone Acetate (Depo-Provera), 1 DOSE INJ Q3MO Scheduled PRN Acetaminophen (Tylenol Arthritis Ext Rel), 1,300 MG PO Q8H PRN for Pain Albuterol Hfa (Ventolin Hfa), 2 PUFFS INH Q6H PRN for SOB/Wheezing Dicyclomine HCl (Dicyclomine HCl), 10 MG PO Q6 PRN for abdominal cramps Allergies Coded Allergies: No Known Allergies (Verified , 11/25/16) Physical Exam Vital Signs Date Time Temp Pulse Resp B/P (MAP) Pulse Ox O2 Delivery O2 Flow Rate FiO2 11/23/17 21:35 82 19 121/67 99 11/23/17 20:08 78 18 120/66 98 Room Air 11/23/17 18:05 89 20 116/76 98 Room Air 11/23/17 16:07 37.4 124 20 106/68 97 Room Air Physical Exam General: Well developed well nourished mildly ill-appearing young female in no acute distress, breathing comfortably on room air. Normal speech HEENT: Normal cephalic atraumatic. Pupils are equal round and reactive to light. Extraocular movements are intact. Oropharynx is pink with moist mucous membranes. No swelling of the mouth lips or tongue. Neck: Supple with a midline trachea. No meningeal signs or stiffness, no JVD or bruits. No Stridor. Chest: Clear to auscultation bilaterally. No wheezes or rhonchi. No increased work of breathing. Heart: regular rate and rhythm. Abdomen: Soft nondistended without rebound guarding or rigidity. Mildly diffusely tender. Extremities: No cyanosis clubbing or edema. No calf tenderness or assymetry Spine/Back. Non tender to palpation. No CVA tenderness Skin: Good turgor without rashes. Neurologic exam: Cranial nerves two through 12 are intact. Motor and sensation are intact and symmetrical throughout. Medical Decision & Procedures Laboratory Results 11/23/17 16:40 Red Blood Count 5.25, Mean Corpuscular Volume 84.6, Mean Corpuscular Hemoglobin 29.3, Mean Corpuscular Hemoglobin Concent 34.7, Mean Platelet Volume 8.6, Neutrophils (%) (Auto) 61.0, Lymphocytes (%) (Auto) 21.9, Monocytes (%) (Auto) 14.4, Eosinophils (%) (Auto) 2.0, Basophils (%) (Auto) 0.3, Neutrophils # (Auto ) 4.86, Lymphocytes # (Auto) 1.74, Monocytes # (Auto) 1.15, Eosinophils # (Auto ) 0.16, Basophils # (Auto) 0.02 11/23/17 16:40 Test 11/23/17 16:40 White Blood Count 7.96 K/uL (4.8-10.8) Red Blood Count 5.25 M/uL (4.2-5.4) Hemoglobin 15.4 g/dL (12.0-16.0) Hematocrit 44.4 % (37-47) Mean Corpuscular Volume 84.6 fL (80-100) Mean Corpuscular Hemoglobin 29.3 pg (25-34) Mean Corpuscular Hemoglobin Concent 34.7 g/dl (32-36) Platelet Count 291 K/uL (130-400) Mean Platelet Volume 8.6 fL (7.4-10.4) Neutrophils (%) (Auto) 61.0 % Lymphocytes (%) (Auto) 21.9 % Monocytes (%) (Auto) 14.4 % Eosinophils (%) (Auto) 2.0 % Basophils (%) (Auto) 0.3 % Neutrophils # (Auto) 4.86 K/uL (1.4-6.5) Lymphocytes # (Auto) 1.74 K/uL (1.2-3.4) Monocytes # (Auto) 1.15 K/uL (0.11-0.59) Eosinophils # (Auto) 0.16 K/uL (0-0.5) Basophils # (Auto) 0.02 K/uL (0-0.2) RDW Standard Deviation 41.0 fL (36.4-46.3) RDW Coefficient of Variation 13.5 % (11.5-14.5) Immature Granulocyte % (Auto) 0.4 % Immature Granulocyte # (Auto) 0.03 K/uL (0.00-0.02) Erythrocyte Sedimentation Rate 30 mm/hr (0-21) Anion Gap 9.0 mmol/L (3-11) Est Creatinine Clear Calc Drug Dose 87.7 ml/min Estimated GFR () 92.3 Estimated GFR (Non- 79.6 BUN/Creatinine Ratio 4.4 (10-20) Calcium Level 9.3 mg/dl (8.5-10.1) Total Bilirubin 0.5 mg/dl (0.2-1) Direct Bilirubin 0.1 mg/dl (0-0.2) Aspartate Amino Transf (AST/SGOT) 14 U/L (15-37) Alanine Aminotransferase (ALT/SGPT) 25 U/L (12-78) Alkaline Phosphatase 68 U/L (45-117) C-Reactive Protein 4.76 mg/dl (0-0.29) Total Protein 8.3 gm/dl (6.4-8.2) Albumin 3.6 gm/dl (3.4-5.0) Lipase 125 U/L (73-393) Human Chorionic Gonadotropin, Qual NEG (NEG) Laboratory studies as stated above per my review. Medications Administered Medications (Trade) Dose Ordered Sig/Felisa Route Start Time Stop Time Status Last Admin Dose Admin Sodium Chloride 1,000 ml @ 999 mls/hr Q1H1M STAT IV 11/23/17 16:32 11/23/17 17:32 DC 11/23/17 16:52 999 MLS/HR Sodium Chloride 1,000 ml @ 200 mls/hr Q5H ONCE IV 11/23/17 16:32 11/23/17 21:31 DC 11/23/17 16:52 200 MLS/HR Ondansetron HCl (Zofran Inj) 4 mg NOW STAT IV 11/23/17 16:32 11/23/17 16:34 DC 11/23/17 16:52 4 MG Sodium Chloride 1,000 ml @ 999 mls/hr Q1H1M STAT IV 11/23/17 17:41 11/23/17 18:41 DC 11/23/17 17:41 999 MLS/HR Methylprednisolone Sodium Succinate (Solu-Medrol IV) 125 mg NOW STAT IV 11/23/17 21:25 11/23/17 21:26 DC 11/23/17 21:32 125 MG Ondansetron HCl (ZOFRAN ODT 4MG Home Pack) 1 homepack UD ONCE PO 11/23/17 21:30 11/23/17 21:31 DC 11/23/17 21:33 1 HOMEPACK ED Course 1631: Past medical records reviewed. The patient was evaluated in room C10, and a complete history and physical examination were performed. 1632: Administered Zofran HCl 4 mg IV, Sodium Chloride 1000 ml @ 200 mls/hr IV, Sodium Chloride 1000 ml @ 999 mls/hr IV. 174: Administered Sodium Chloride 1000 ml @ 999 mls/hr IV. 181: I checked on the patient and updated her on her results. She states that she is doing better. 1915: Discussed the patient's case with Carroll Sawyer. He states that he would like to check the patient's C Diff. 1919: I spoke with the patient's father over the phone. The father is a GI doctor in [place]. 2010: I reevaluated the patient and she is feeling fine. She noted that she would like to go home. We are waiting on her C Diff results to come back. 2022: Discussed the patient's case with Dr. Blackman - Urologist, [facility]. The patient will be evaluated for further management. 2124: Administered Solu-Medrol IV 125 mg IV. 2125: Upon reevaluation, the patient is resting. I notified her that her C Diff results came back negative. I discussed the results and treatment plan with her. She verbalized agreement of the treatment plan. The patient was discharged home. 2129: Administered Ondansetron HCl 1 homepack PO. Medical Decision Differentials include Crohn's disease flare, electrolyte or metabolic abnormality, infection. This patient comes in as described above. she does have ulcerative colitis. She feels she is having a flareup. She has been on a long course of Eucerus and missed 5 days [place] was [place] she has been started back on for about 4 days and still has symptoms. She has had multiple bowel movements but no blood she had some nausea vomiting she feels dehydrated. she was hydrated with IV normal saline and received 2 L IV normal saline in the ER as well as for Zofran. she is feeling a lot better. abdomen is benign and is minimally tender with no focality. She has no white count or fever. She has no significant anemia. She has no significant electrolyte or metabolic abnormalities. No abnormal LFTs. I did discuss case with the on-call GI specialist as well as her father who is a GI specialist and the patient gave me permission to talk to. I talked to the GI specialist to recommended that we check her for C. difficile and also get a sed rate and CRP these were ordered. If C. difficile was negative, he recommends given her IV Solu-Medrol and he can follow-up with her tomorrow. I discussed with the patient she adamantly does not want to be admitted and I think this is reasonable to let her go home with close follow-up with GI after receiving some IV steroids. I discussed this with her father who is a GI specialist at [place] and he agrees with the plan. C. difficile was negative and she did receive IV Solu-Medrol and will follow-up tomorrow with Dr. Nur. Medication Reconcilliation Current Medication List: was personally reviewed by me Blood Pressure Screening Patient's blood pressure: Normal blood pressure Consults Time Called: 1813 Consulting Physician: Montrell Sawyer Returned Call: 1915 Discussed the patient's case with Montrell Sawyer. He states that he would like to check the patient's C Diff. Additional Consults: Time Called: 2010 Consulted Physician: Dr. Blackman - Urologist, [facility] Returned Call: 2022 Additional Comments: Discussed the patient's case with Dr. Blackman - Radiology, [facility]. The patient will be evaluated for further management. Impression Primary Impression: Exacerbation of ulcerative colitis Additional Impressions: Diffuse abdominal pain Diarrhea Vomiting Scribe Attestation The scribe's documentation has been prepared under my direction and personally reviewed by me in its entirety. I confirm that the note above accurately reflects all work, treatment, procedures, and medical decision making performed by me. Departure Information Dispostion Home / Self-Care Referrals RV. Jean MD (PCP) Forms HOME CARE DOCUMENTATION FORM, IMPORTANT VISIT INFORMATION Patient Instructions My [facility] Additional Instructions Rest Drink plenty of fluids Follow-up with Dr. Nur tomorrow and receive further instruction on medication Return if: worsening of symptoms, increasing pain, fever, any new problems or concerns Problem Qualifiers
[2017-11-23 17:13] LABS: BASO % 0.3 %; BASO ABS # 0.02 K/uL (0-0.2); EOS ABS # 0.16 K/uL (0-0.5); HEMATOCRIT 44.4 % (37-47); HEMOGLOBIN 15.4 g/dL (12.0-16.0); IG# 0.03 K/uL (0.00-0.02); LYMPH % 21.9 %; LYMPH ABS # 1.74 K/uL (1.2-3.4); MEAN CELL VOLUME 84.6 fL (80-100); MEAN CORPUSCULAR HEMOGLOBIN 29.3 pg (25-34); MEAN CORPUSCULAR HGB CONC 34.7 g/dl (32-36); MEAN PLATELET VOLUME 8.6 fL (7.4-10.4); MONO % 14.4 %; MONO ABS # 1.15 K/uL (0.11-0.59); NEUT ABS # 4.86 K/uL (1.4-6.5); PLATELET COUNT 291 K/uL (130-400); RED CELL DISTRIBUTION WIDTH CV 13.5 % (11.5-14.5); WHITE BLOOD COUNT 7.96 K/uL (4.8-10.8)
[2017-11-23 17:46] LABS: ALBUMIN 3.6 gm/dl (3.4-5.0); CALCIUM 9.3 mg/dl (8.5-10.1); CREATININE 0.98 mg/dl (0.60-1.20); POTASSIUM 3.4 mmol/L (3.5-5.1); TOTAL PROTEIN 8.3 gm/dl (6.4-8.2)
[2017-11-23] MEDS ORDERED: VNTHFA/IN INH (19:01)
[2017-11-23] MEDS ORDERED: DPPI400 INJ (19:01)
[2017-11-23] MEDS ORDERED: RMCI IV (19:04)
[2017-11-23] MEDS ORDERED: METHYLPREDNISOLONE 125 MG VIAL IV STA (21:25)
[2017-11-23] MEDS ORDERED: ONDANSETRON HOME PACK 4MG OD TAB PO ONE (21:30)
[2017-11-23 21:35] VITALS: BP 121/67; PULSE 82; O2SAT 99
== END 2017-11-23 21:40 | disposition home or self-care (01) ==
LOC: C.EDB 16:05 → C.EDC 21:40
DX: K51.90 Ulcerative colitis, unspecified, without complications (principal); Z79.899 Other long term (current) drug therapy; J45.909 Unspecified asthma, uncomplicated; Z80.9 Family history of malignant neoplasm, unspecified; Z83.3 Family history of diabetes mellitus

== ENCOUNTER 2017-11-25 10:01 | Inpatient (IN) | payer OTHER ==
[~2017-11-25] VITALS: Ht 172.7 cm; Wt 63.3 kg
[~2017-11-25 10:01] MED LIST changes: -ALBUAER19 INH; +DPPI400 INJ; -IBUP-1050 PO; -IMD/2 PO; -PRLSR20 PO; +RMCI IV; +VNTHFA/IN INH
[2017-11-25] MEDS ORDERED: ONDANSETRON INJ 2 MG/ML 2 ML VIAL IV STA (10:23)
[2017-11-25] MEDS ORDERED: SODIUM CHLORIDE 0.9% 1000ML 2,000 ML IV STA (10:23)
[2017-11-25] MEDS ORDERED: KETOROLAC TROMETHAMINE 30 MG/ML VIAL IV STA (10:23)
[2017-11-25] MEDS ORDERED: ACETAMINOPHEN IV 100 ML IV STA (10:23)
[2017-11-25] MEDS ORDERED: PROMETHAZINE HCL INJ 6.25 MG in SODIUM CHLORIDE 0.9% 50ML 50 ML IV STA (10:23)
[2017-11-25] MEDS ORDERED: FLVHFA110 INH (10:41)
[2017-11-25] MEDS ORDERED: PRED10TA PO (10:41)
[2017-11-25] MEDS ORDERED: ONDA4TAB10 SL (10:41)
[2017-11-25] MEDS ORDERED: DICY10CA55 PO (10:41)
[2017-11-25 11:20] LABS: ALBUMIN 3.2 gm/dl (3.4-5.0); CALCIUM 8.7 mg/dl (8.5-10.1); CREATININE 0.88 mg/dl (0.60-1.20); POTASSIUM 3.3 mmol/L (3.5-5.1); TOTAL PROTEIN 7.1 gm/dl (6.4-8.2)
[2017-11-25 11:23] LABS: BASO % 0.2 %; BASO ABS # 0.02 K/uL (0-0.2); EOS % 1.1 %; EOS ABS # 0.11 K/uL (0-0.5); HEMATOCRIT 39.7 % (37-47); HEMOGLOBIN 13.7 g/dL (12.0-16.0); IG# 0.08 K/uL (0.00-0.02); LYMPH % 16.1 %; LYMPH ABS # 1.61 K/uL (1.2-3.4); MEAN CELL VOLUME 84.1 fL (80-100); MEAN CORPUSCULAR HGB CONC 34.5 g/dl (32-36); MEAN PLATELET VOLUME 8.4 fL (7.4-10.4); MONO % 11.4 %; MONO ABS # 1.14 K/uL (0.11-0.59); NEUT % 70.4 %; NEUT ABS # 7.06 K/uL (1.4-6.5); PLATELET COUNT 310 K/uL (130-400); RED CELL DISTRIBUTION WIDTH CV 13.3 % (11.5-14.5); RED CELL DISTRIBUTION WIDTH SD 40.8 fL (36.4-46.3); WHITE BLOOD COUNT 10.02 K/uL (4.8-10.8)
--- NOTE | 2017-11-25 12:09 | DIAGNOSTIC IMAGING REPORT ---
ABDOMEN 2VIEW W/PA CHEST RTN CLINICAL HISTORY: 27 years-old Female presenting with ABDOMINAL PAIN/GI, history of ulcerative colitis. TECHNIQUE: PA view of the chest and supine and upright views of the abdomen were obtained. COMPARISON: None. FINDINGS: Cardiomediastinal silhouette normal. Lungs and pleural spaces clear. Nonobstructive bowel gas pattern. No gross pneumoperitoneum. Allowing for bowel gas and stool, no calcifications to suggest nephrolithiasis. Osseous structures normal. IMPRESSION: 1. No acute cardiopulmonary disease. 2. No radiographic evidence of acute intra-abdominal pathology. Electronically signed by: Jared Maki M.D. 11/25/2017 12:07 PM Dictated Date/Time: 11/25/2017 12:06 PM
[2017-11-25] MEDS ORDERED: ONDANSETRON 4MG OD TAB SL PRN (13:15)
[2017-11-25] MEDS ORDERED: FLUTICASONE HFA 110MCG INHALER INH PRN (13:15)
[2017-11-25] MEDS ORDERED: MAGNESIUM HYDROXIDE SUSP 30 ML UDC PO PRN (13:15)
[2017-11-25] MEDS ORDERED: ACETAMINOPHEN 325 MG TAB PO PRN (13:15)
--- NOTE | 2017-11-25 13:34 | History and Physical ---
History & Physical Date & Time of Service: Nov 25, 2017 at 13:21 Chief Complaint: Ulcerative Colitis Flare Primary Care Physician: [facility] History of Present Illness Source: patient 27 y/o F c/o UC flare. Pt states her sx started about a week ago with diffuse abd cramping, n/v/d. She was seen in the ED two days ago and offered admission , but was feeling improved s/p ED interventions and elected for outpt tx with steroids and zofran. She was seen by Dr. Nur yesterday who changed her Usaris to prednisone and recommended for f/u with IBD clinic in [place] given her ongoing issues with maintenance therapy. Pt continued to having worsening cramping, n/v/d. She threw up her meds this AM and so she came to the ED for further assessment. Pt is s/p IVF, toradol, and phenergan in the ED. She did not receive steroids in the ED. She is feeling improved overall. No further abd pain. She has been urinating without issue. No blood in stool or emesis. Pt has been on Usaris for several months. The initial plan was to use this medication for 2 months and then transition to something else. Pt was traveling and requested to stay on Usaris as attempts to come off in the past have lead to UC flares. This was granted, however she had not followed up yet for new plans. She states she misses maybe 1 dose per month. Pt denies fever, SOB, chest pain, LE pain or swelling. Pt is on depo-provera and denies missing injections. She does get occasional spotting, but not full periods. She is not certain if she has cramping related to her menstrual cycles or her UC at times, but the ongoing cramping she has been having the last week is more severe than other cramping she has. Past Medical/Surgical History UC Asthma, last rescue inhaler use was several months ago Family History Family history was reviewed; no changes noted. Denies DE, CVA Social History Smoking Status: Never Smoker Alcohol Use: occasionally (drinks a few drinks once a month or less) Drug Use: none Marital Status: in relationship Housing status: lives with friends Occupational Status: [employer] student Allergies Coded Allergies: No Known Allergies (Verified , 11/25/17) Home Medications Scheduled Infliximab (Remicade), 1 DOSE IV Q4-6WKS Medroxyprogesterone Acetate (Depo-Provera), 1 DOSE INJ Q3MO Prednisone (Prednisone), 10 MG PO DAILY Scheduled PRN Albuterol Hfa (Ventolin Hfa), Unknown Dose INH Q6H PRN for SOB/Wheezing Dicyclomine HCl (Dicyclomine HCl), 10 MG PO Q6 PRN for abdominal cramps Fluticasone Propionate (Flovent Hfa), 2 PUFFS INH BID PRN for SOB/Wheezing Ondasetron Odt (Zofran Odt), 4 MG SL Q6H PRN for Nausea Review of Systems Pertinent positives and negatives reviewed in HPI--all others negative Physical Exam Vital Signs Date Time Temp Pulse Resp B/P (MAP) Pulse Ox O2 Delivery O2 Flow Rate FiO2 11/25/17 12:12 58 20 91/53 97 Room Air 11/25/17 11:30 62 20 91/60 96 Room Air 11/25/17 11:05 66 20 109/65 96 Room Air 11/25/17 10:05 36.9 85 18 119/78 97 Room Air General Appearance: no apparent distress, + mild distress (ill appearing) Head: normocephalic, atraumatic Eyes: normal inspection, sclerae normal Respiratory/Chest: normal breath sounds, no respiratory distress Cardiovascular: regular rate, rhythm, no edema Abdomen/GI: non tender, soft Extremities/Musculoskelatal: no calf tenderness, no pedal edema Neurologic/Psych: alert, normal mood/affect, oriented x 3 Skin: normal color, warm/dry Diagnostics Laboratory Results Results Past 24 Hours Test 11/25/17 10:50 11/25/17 11:10 Range/Units White Blood Count 10.02 4.8-10.8 K/uL Red Blood Count 4.72 4.2-5.4 M/uL Hemoglobin 13.7 12.0-16.0 g/dL Hematocrit 39.7 37-47 % Mean Corpuscular Volume 84.1 80-100 fL Mean Corpuscular Hemoglobin 29.0 25-34 pg Mean Corpuscular Hemoglobin Concent 34.5 32-36 g/dl Platelet Count 310 130-400 K/uL Mean Platelet Volume 8.4 7.4-10.4 fL Neutrophils (%) (Auto) 70.4 % Lymphocytes (%) (Auto) 16.1 % Monocytes (%) (Auto) 11.4 % Eosinophils (%) (Auto) 1.1 % Basophils (%) (Auto) 0.2 % Neutrophils # (Auto) 7.06 1.4-6.5 K/uL Lymphocytes # (Auto) 1.61 1.2-3.4 K/uL Monocytes # (Auto) 1.14 0.11-0.59 K/uL Eosinophils # (Auto) 0.11 0-0.5 K/uL Basophils # (Auto) 0.02 0-0.2 K/uL RDW Standard Deviation 40.8 36.4-46.3 fL RDW Coefficient of Variation 13.3 11.5-14.5 % Immature Granulocyte % (Auto) 0.8 % Immature Granulocyte # (Auto) 0.08 0.00-0.02 K/uL Sodium Level 139 136-145 mmol/L Potassium Level 3.3 3.5-5.1 mmol/L Chloride Level 107 98-107 mmol/L Carbon Dioxide Level 26 21-32 mmol/L Anion Gap 7.0 3-11 mmol/L Blood Urea Nitrogen 9 7-18 mg/dl Creatinine 0.88 0.60-1.20 mg/dl Est Creatinine Clear Calc Drug Dose 96.8 ml/min Estimated GFR () 105.1 Estimated GFR (Non- 90.7 BUN/Creatinine Ratio 10.1 10-20 Random Glucose 91 70-99 mg/dl Calcium Level 8.7 8.5-10.1 mg/dl Magnesium Level 2.0 1.8-2.4 mg/dl Total Bilirubin 0.3 0.2-1 mg/dl Aspartate Amino Transf (AST/SGOT) 12 15-37 U/L Alanine Aminotransferase (ALT/SGPT) 20 12-78 U/L Alkaline Phosphatase 52 45-117 U/L Total Protein 7.1 6.4-8.2 gm/dl Albumin 3.2 3.4-5.0 gm/dl Globulin 3.9 2.5-4.0 gm/dl Albumin/Globulin Ratio 0.8 0.9-2 Lipase 145 73-393 U/L Human Chorionic Gonadotropin, Qual NEG NEG Urine Color DK YELLOW Urine Appearance CLOUDY CLEAR Urine pH 5.5 4.5-7.5 Urine Specific [place]itt 1.028 1.000-1.030 Urine Protein TRACE NEG Urine Glucose (UA) NEG NEG Urine Ketones TRACE NEG Urine Occult Blood 2+ NEG Urine Nitrite NEG NEG Urine Bilirubin NEG NEG Urine Urobilinogen NEG NEG Urine Leukocyte Esterase MODERATE NEG Urine WBC (Auto) >30 0-5 /hpf Urine RBC (Auto) 0-4 0-4 /hpf Urine Hyaline Casts (Auto) 10-30 0-5 /lpf Urine Epithelial Cells (Auto) >30 0-5 /lpf Urine Bacteria (Auto) 1+ NEG Urine Pathogenic Casts 0-3 GRANULAR CASTS 0 /lpf Urine Yeast (Auto) NONE PRSENT Microbiology Results 11/25/17 Urine Culture, Received Pending Diagnostic Radiology C/Abd XR: neg for acute Impression Assessment and Plan 27 y/o F who was admitted on 11/25 with UC flare UC flare: hx of same, failed outpt management after being seen in the ED on 11/23 Steroids, IVF, zofran and monitor Toradol Seen by Dr. Nur yesterday in office and recs for assessment with [facility] for a new preventive strategy--awaiting f/u appt GI c/s pending C/Abd XR neg for acute Lipase WNL Preg test neg Abn UA: + leuk est, neg nitrites Urine cx pending Given pt's sx, will tx with ceftriaxone which can be stopped if cx is neg HypoK: replace and monitor Other: Clears as tolerated SCDs for DVT proph Resuscitation Status VTE Prophylaxis Will order VTE Prophylaxis: Yes Additional Copies To [facility]
[2017-11-25 14:21] VITALS: BP 99/91; PULSE 66; TEMP 36.9; O2SAT 98; Ht 172.7 cm; Wt 63.3 kg
[2017-11-25] MEDS: SODIUM CHLORIDE 0.9% 1000ML 1,000 ML IV SCH ×2 (14:40→23:35)
[2017-11-25 15:15] VITALS: O2SAT 97
[2017-11-25] MEDS: METHYLPREDNISOLONE IV 30 MG in SYRINGE 0 ML IV SCH (15:20)
[2017-11-25] MEDS: POTASSIUM CHLR 10 MEQ / WTR 100 ML IV SCH ×2 (15:25→16:39)
[2017-11-25 15:29] VITALS: BP 101/62; PULSE 58; TEMP 36.7; O2SAT 97
--- NOTE | 2017-11-25 16:20 | EMERGENCY ROOM VISIT NOTE ---
History Report prepared by Tish: Philip Victor Under the Supervision of: Dr. Giovanni Murillo M.D. First contact with patient: 10:18 Chief Complaint: ABDOMINAL PAIN Stated Complaint: ULCERATIVE COLITIS FLARE History of Present Illness The patient is a 27 year old female who presents to the Emergency Room with complaints of persistent vomiting and abdominal pain associated with her ulcerative colitis. The patient states that she was in the ER 2 days ago with similar complaints, and was given fluids, steroids, and IV Zofran. She was told she could be admitted, but chose to go home. She reports that she saw Dr. Ismael GARDUNO yesterday, who instructed her that she needs to see a specialist in [place]. The patient notes that she was switched to prednisone. She states that this morning she vomited 3 times, including her medication. She states that she tried Zofran after the first time she vomited, but notes that it did not help. She rates her pain this morning at a severity of 9/10. She notes a large amount of diarrhea without blood. She denies fevers. Source of History: patient Onset: last ER visit 2 days ago Position: abdomen Symptom Intensity: 9/10 pain and vomited 3 times this morning Quality: other (vomiting and abdominal pain) Timing: other (persistent) Modifying Factors (Relieving): other (no improvement with Zofran) Associated Symptoms: + diarrhea (without blood), No fevers Review of Systems See HPI for pertinent positives & negatives. A total of 10 systems reviewed and were otherwise negative. Past Medical & Surgical Medical Problems: (1) Asthma (2) Chronic ulcerative colitis Family History FH: heart disease FHx: cancer FHx: diabetes mellitus Social History Smoking Status: Never Smoker Drug Use: none Marital Status: in relationship Occupation Status: [employer] Current/Historical Medications Scheduled Infliximab (Remicade), 1 DOSE IV Q4-6WKS Medroxyprogesterone Acetate (Depo-Provera), 1 DOSE INJ Q3MO Prednisone (Prednisone), 10 MG PO DAILY Scheduled PRN Albuterol Hfa (Ventolin Hfa), Unknown Dose INH Q6H PRN for SOB/Wheezing Dicyclomine HCl (Dicyclomine HCl), 10 MG PO Q6 PRN for abdominal cramps Fluticasone Propionate (Flovent Hfa), 2 PUFFS INH BID PRN for SOB/Wheezing Ondasetron Odt (Zofran Odt), 4 MG SL Q6H PRN for Nausea Allergies Coded Allergies: No Known Allergies (Verified , 11/25/17) Physical Exam Vital Signs Date Time Temp Pulse Resp B/P (MAP) Pulse Ox O2 Delivery O2 Flow Rate FiO2 11/25/17 12:12 58 20 91/53 97 Room Air 11/25/17 11:30 62 20 91/60 96 Room Air 11/25/17 11:05 66 20 109/65 96 Room Air 11/25/17 10:05 36.9 85 18 119/78 97 Room Air Physical Exam GENERAL: Patient is in no acute distress. HEENT: No acute trauma, normocephalic atraumatic, mucous membranes moist, no nasal congestion, no scleral icterus. NECK: No stridor, no adenopathy, no meningismus, trachea is midline. LUNGS: Clear to auscultation bilaterally, no wheeze, no rhonchi, breath sounds equal. HEART: Without murmurs gallops or rubs, regular rate and rhythm. ABDOMEN: Soft, mildly diffusely tender, bowel sounds positive, no hernias, no peritonitis. EXTREMITIES: No cyanosis or edema, full range of motion of all the joints without pain or difficulty, no signs for acute trauma. NEUROLOGIC: Oriented x 3, no acute motor or sensory deficits, no focal weakness. SKIN: No rash, no jaundice, no diaphoresis. Medical Decision & Procedures ER Provider Diagnostic Interpretation: Radiology results as stated below per my review and radiologist interpretation: ABDOMEN 2VIEW W/PA CHEST RTN CLINICAL HISTORY: 27 years-old Female presenting with ABDOMINAL PAIN/GI, history of ulcerative colitis. TECHNIQUE: PA view of the chest and supine and upright views of the abdomen were obtained. COMPARISON: None. FINDINGS: Cardiomediastinal silhouette normal. Lungs and pleural spaces clear. Nonobstructive bowel gas pattern. No gross pneumoperitoneum. Allowing for bowel gas and stool, no calcifications to suggest nephrolithiasis. Osseous structures normal. IMPRESSION: 1. No acute cardiopulmonary disease. 2. No radiographic evidence of acute intra-abdominal pathology. Electronically signed by: Jared Maki M.D. 11/25/2017 12:07 PM Dictated Date/Time: 11/25/2017 12:06 PM Laboratory Results 11/25/17 10:50 Red Blood Count 4.72, Mean Corpuscular Volume 84.1, Mean Corpuscular Hemoglobin 29.0, Mean Corpuscular Hemoglobin Concent 34.5, Mean Platelet Volume 8.4, Neutrophils (%) (Auto) 70.4, Lymphocytes (%) (Auto) 16.1, Monocytes (%) (Auto) 11.4, Eosinophils (%) (Auto) 1.1, Basophils (%) (Auto) 0.2, Neutrophils # (Auto ) 7.06, Lymphocytes # (Auto) 1.61, Monocytes # (Auto) 1.14, Eosinophils # (Auto ) 0.11, Basophils # (Auto) 0.02 11/25/17 10:50 Test 11/25/17 10:50 11/25/17 11:10 White Blood Count 10.02 K/uL (4.8-10.8) Red Blood Count 4.72 M/uL (4.2-5.4) Hemoglobin 13.7 g/dL (12.0-16.0) Hematocrit 39.7 % (37-47) Mean Corpuscular Volume 84.1 fL (80-100) Mean Corpuscular Hemoglobin 29.0 pg (25-34) Mean Corpuscular Hemoglobin Concent 34.5 g/dl (32-36) Platelet Count 310 K/uL (130-400) Mean Platelet Volume 8.4 fL (7.4-10.4) Neutrophils (%) (Auto) 70.4 % Lymphocytes (%) (Auto) 16.1 % Monocytes (%) (Auto) 11.4 % Eosinophils (%) (Auto) 1.1 % Basophils (%) (Auto) 0.2 % Neutrophils # (Auto) 7.06 K/uL (1.4-6.5) Lymphocytes # (Auto) 1.61 K/uL (1.2-3.4) Monocytes # (Auto) 1.14 K/uL (0.11-0.59) Eosinophils # (Auto) 0.11 K/uL (0-0.5) Basophils # (Auto) 0.02 K/uL (0-0.2) RDW Standard Deviation 40.8 fL (36.4-46.3) RDW Coefficient of Variation 13.3 % (11.5-14.5) Immature Granulocyte % (Auto) 0.8 % Immature Granulocyte # (Auto) 0.08 K/uL (0.00-0.02) Anion Gap 7.0 mmol/L (3-11) Est Creatinine Clear Calc Drug Dose 96.8 ml/min Estimated GFR () 105.1 Estimated GFR (Non- 90.7 BUN/Creatinine Ratio 10.1 (10-20) Calcium Level 8.7 mg/dl (8.5-10.1) Magnesium Level 2.0 mg/dl (1.8-2.4) Total Bilirubin 0.3 mg/dl (0.2-1) Aspartate Amino Transf (AST/SGOT) 12 U/L (15-37) Alanine Aminotransferase (ALT/SGPT) 20 U/L (12-78) Alkaline Phosphatase 52 U/L (45-117) Total Protein 7.1 gm/dl (6.4-8.2) Albumin 3.2 gm/dl (3.4-5.0) Globulin 3.9 gm/dl (2.5-4.0) Albumin/Globulin Ratio 0.8 (0.9-2) Lipase 145 U/L (73-393) Human Chorionic Gonadotropin, Qual NEG (NEG) Urine Color DK YELLOW Urine Appearance CLOUDY (CLEAR) Urine pH 5.5 (4.5-7.5) Urine Specific [place] 1.028 (1.000-1.030) Urine Protein TRACE (NEG) Urine Glucose (UA) NEG (NEG) Urine Ketones TRACE (NEG) Urine Occult Blood 2+ (NEG) Urine Nitrite NEG (NEG) Urine Bilirubin NEG (NEG) Urine Urobilinogen NEG (NEG) Urine Leukocyte Esterase MODERATE (NEG) Urine WBC (Auto) >30 /hpf (0-5) Urine RBC (Auto) 0-4 /hpf (0-4) Urine Hyaline Casts (Auto) 10-30 /lpf (0-5) Urine Epithelial Cells (Auto) >30 /lpf (0-5) Urine Bacteria (Auto) 1+ (NEG) Urine Pathogenic Casts 0-3 GRANULAR CASTS /lpf (0) Urine Yeast (Auto) (NONE PRSENT) Laboratory results reviewed by me. Medications Administered Medications (Trade) Dose Ordered Sig/Felisa Route Start Time Stop Time Status Last Admin Dose Admin Sodium Chloride 2,000 ml @ 999 mls/hr Q2H1M STAT IV 11/25/17 10:23 11/25/17 12:23 DC 11/25/17 10:23 999 MLS/HR Ondansetron HCl (Zofran Inj) 4 mg NOW STAT IV 11/25/17 10:23 11/25/17 10:26 DC 11/25/17 10:47 4 MG Ketorolac Tromethamine (Toradol Inj) 15 mg NOW STAT IV 11/25/17 10:23 11/25/17 10:26 DC 11/25/17 10:47 15 MG Acetaminophen 100 ml @ 400 mls/hr NOW STAT IV 11/25/17 10:23 11/25/17 10:37 DC 11/25/17 10:47 400 MLS/HR Promethazine HCl 6.25 mg/Sodium Chloride 50.25 ml @ 204 mls/hr NOW STAT IV 11/25/17 10:23 11/25/17 10:37 DC 11/25/17 11:07 204 MLS/HR ED Course 1020: The patient was evaluated in room B5. A complete history and physical exam was performed. 1023: Ordered Promethazine HCl 6.25 mg/Sodium Chloride 50.25 ml @ 204 mls/hr IV , Acetaminophen 100 ml @ 400 mls/hr protocol IV, Toradol 15 mg IV, Zofran 4 mg IV, Sodium Chloride 2000 ml @ 999 mls/hr IV 1230: I consulted Dr. Boom GARDUNO. He states that there is nothing emergent in the patient's case from his standpoint, and she can be hospitalized. 1231: I updated with the patient, who currently feels okay. 1234: I consulted Dr. Meme Key - [facility] Hospitalist. She will reevaluate the patient for hospitalization. Medical Decision Differential diagnosis: exacerbation of ulcerative colitis, foodborne or viral illness, dehydration, electrolyte imbalance, anemia, failed outpatient treatment There is no leukocytosis or concerning anemia. No significant electrolyte abnormality, kidney failure, hepatitis or pancreatitis. testing is negative. Urinalysis shows contamination, no obvious infection. Obstruction series shows a normal bowel pattern, no bowel obstruction, no pneumonia. On exam, the patient was not febrile or toxic. There was no peritonitis. The patient received IV saline, IV Toradol and IV Tylenol. She was given IV Zofran and IV Phenergan. She seems to be resting more comfortably. Patient has failed outpatient treatment. She requires a hospital stay for fluids and symptom control. She appears to be having a flare of her ulcerative colitis. I did speak with GI, I talked with the patient. I spoke with the case management coordinator. The on-call hospitalist was consulted. Medication Reconcilliation Current Medication List: was personally reviewed by me Blood Pressure Screening Patient's blood pressure: Low blood pressure referred to hospitalist Consults Time Called: 1225 Consulting Physician: Dr. Boom GARDUNO Returned Call: [address] Boom GARDUNO. He states that there is nothing emergent in the patient's case from his standpoint, and she can be hospitalized. Additional Consults: Time Called: 1232 Consulted Physician: Dr. Meme Key - [facility] Hospitalist Returned Call: 1231 Additional Comments: I consulted Dr. Meme Key - [facility] Hospitalist. She will reevaluate the patient for hospitalization. Impression Primary Impression: Dehydration Additional Impressions: Nausea, vomiting, and diarrhea Exacerbation of ulcerative colitis Failure of outpatient treatment Scribe Attestation The scribe's documentation has been prepared under my direction and personally reviewed by me in its entirety. I confirm that the note above accurately reflects all work, treatment, procedures, and medical decision making performed by me. Departure Information Dispostion Being Evaluated By Hospitalist Referrals [facility] (PCP) Patient Instructions My [facility] Problem Qualifiers
[2017-11-25] MEDS: CEFTRIAXONE SOD INJ 1 GM in DEXTROSE 5% ADD-VANTAGE 50ML 50 ML IV SCH (18:03)
[2017-11-25] MEDS: ONDANSETRON INJ 2 MG/ML 2 ML VIAL IV PRN (18:10)
[2017-11-25] MEDS: DICYCLOMINE HCL 10 MG CAP PO PRN (19:01)
[2017-11-25 23:35] VITALS: BP 109/69; PULSE 73; TEMP 37; O2SAT 97
[2017-11-25] MEDS: KETOROLAC TROMETHAMINE 30 MG/ML VIAL IV PRN (23:35)
[2017-11-26] VITALS (7 sets, daily range): BP systolic 100–113; BP diastolic 57–68; PULSE 61–80; TEMP 36.9–37; O2SAT 65–97
[2017-11-26] MEDS: DICYCLOMINE HCL 10 MG CAP PO PRN (04:57)
[2017-11-26] MEDS: ONDANSETRON INJ 2 MG/ML 2 ML VIAL IV PRN ×2 (05:00→15:21)
[2017-11-26] MEDS: METHYLPREDNISOLONE IV 30 MG in SYRINGE 0 ML IV SCH (05:37)
[2017-11-26 06:59] LABS: CALCIUM 8.4 mg/dl (8.5-10.1); CREATININE 0.75 mg/dl (0.60-1.20); POTASSIUM 3.5 mmol/L (3.5-5.1)
[2017-11-26] MEDS: SODIUM CHLORIDE 0.9% 1000ML 1,000 ML IV SCH ×2 (09:21→19:52)
--- NOTE | 2017-11-26 10:08 | Gastrointestinal Consultation ---
Gastrointestinal Consultation Date of Consultation: Nov 26, 2017 Attending Physician: Dr. Rodriguez Consulting Physician: Emerita Leonard PA-C Reason for Consultation: Ulcerative Colitis History of Present Illness Patient is a 27 year old female with a past medical history of anxiety & ulcerative colitis. She is hospitalized presently due to a flare of her symptoms. She last underwent endoscopic evaluation in August 2017. 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 Her therapy was changed from Humira to Remicade at that time. She has since completed her induction dosages of Remicade and initially improved. Shortly after, her symptoms relapsed when she completed her steroid taper. She was then placed on Uceris. She was given an extra prescription so she would not run out while [place] the [place], however she forgot that and went without her drug for 4-5 days. She reports that when she returned and faced the stressors of school and living in a place that she dislikes, she began having 10-20 episodes of diarrhea daily. She was placed on po prednisone in the office on 11/24. The plan was for an evaluation with an IBD specialist at [facility]. Unfortunately, she then began having nausea & vomiting. She presented to the ER for further evaluation. Her labs are relatively unremarkable with the exception of her CRP being elevated to 4.76. Her stool was negative for enteric pathogens & C diff. She is presently on IV steroids. She reports some improvement of her symptoms overnight. She wants to stabilize her symptoms, return home with a po steroid taper and see [facility] for further recommendations. She opens up to me today that school seems to be her biggest trigger for symptoms. She notes that she does not enjoy her curriculum, her advisor, or living in [place]. She has one more semester and is eager to be done, but she is considering taking some time off. She reports that she is seeing a therapist, but the techniques aren't helping. She is open to initiating pharmacologic therapy as an outpatient and believes that it will significantly improve her ability to control her GI symptoms. Past Medical/Surgical History Medical Problems: (1) Dehydration Status: Acute (2) Exacerbation of ulcerative colitis Status: Acute (3) Exacerbation of ulcerative colitis Status: Acute (4) Failure of outpatient treatment Status: Acute (5) Nausea, vomiting, and diarrhea Status: Acute Past Medical History: Ulcerative Colitis, Rheumatologic back pain (?JRA vs ankylosing spondylitis) Past Surgical History: none pertinent Family History FH: heart disease FHx: cancer FHx: diabetes mellitus Social History Smoking Status: Never Smoker Drug Use: none Marital Status: in relationship Occupation Status: [employer] student Allergies Coded Allergies: No Known Allergies (Verified , 11/25/17) Current Medications Home Meds and Scripts Medications Dose Route/Sig Max Daily Dose Days Date Category Flovent Hfa (Fluticasone Propionate) 120 Puffs/39358 Mcg Aero 2 Puffs INH BID PRN 11/25/17 Reported Zofran Odt (Ondansetron HCl) 4 Mg Tab 4 Mg SL Q6H PRN 11/25/17 Reported Prednisone 10 Mg Tab 10 Mg PO DAILY 11/25/17 Reported Depo-Provera (Medroxyprogesterone Acetate) 400 Mg/Ml Inj 1 Dose INJ Q3MO 11/23/17 Reported Ventolin Hfa (Albuterol) Unknown Strength Aers Unknown Dose INH Q6H PRN 11/23/17 Reported Dicyclomine HCl 10 Mg Cap 10 Mg PO Q6 PRN 08/29/17 Rx Review of Systems Constitutional: No fever, No chills Eyes: No problem reported Respiratory: No cough, No shortness of breath Cardiac: No chest pain Abdomen: + pain (generalized), + nausea, + vomiting, + diarrhea, No constipation, No GI bleeding Musculoskeletal: + problem reported (back pain) Neuro: No problem reported Psych: + anxiety Heme: No problem reported Endo: No problem reported Skin: No problem reported Physical Exam Date Time Temp Pulse Resp B/P (MAP) Pulse Ox O2 Delivery O2 Flow Rate FiO2 11/26/17 08:19 96 Room Air 11/26/17 08:00 Room Air 11/26/17 07:45 37.0 61 16 109/66 (80) 96 Room Air 11/25/17 23:35 Room Air 11/25/17 23:35 37.0 73 16 109/69 (82) 97 Room Air 11/25/17 15:29 36.7 58 17 101/62 (75) 97 Room Air 11/25/17 15:15 97 Room Air 11/25/17 14:21 36.9 66 18 99/91 98 Room Air 11/25/17 14:14 76 20 104/64 98 11/25/17 12:12 58 20 91/53 97 Room Air 11/25/17 11:30 62 20 91/60 96 Room Air 11/25/17 11:05 66 20 109/65 96 Room Air 11/25/17 10:05 36.9 85 18 119/78 97 Room Air General Appearance: WD/WN, no apparent distress Eyes: normal inspection, PERRL ENT: hearing grossly normal Respiratory/Chest: lungs clear, normal breath sounds Cardiovascular: regular rate, rhythm Abdomen: normal bowel sounds, non tender, soft Extremities: non-tender Neurologic/Psych: alert, oriented x 3 Skin: normal color Laboratory Results Last 24 Hours Test 11/25/17 10:50 11/25/17 11:10 11/26/17 05:44 White Blood Count 10.02 K/uL Red Blood Count 4.72 M/uL Hemoglobin 13.7 g/dL Hematocrit 39.7 % Mean Corpuscular Volume 84.1 fL Mean Corpuscular Hemoglobin 29.0 pg Mean Corpuscular Hemoglobin Concent 34.5 g/dl Platelet Count 310 K/uL Mean Platelet Volume 8.4 fL Neutrophils (%) (Auto) 70.4 % Lymphocytes (%) (Auto) 16.1 % Monocytes (%) (Auto) 11.4 % Eosinophils (%) (Auto) 1.1 % Basophils (%) (Auto) 0.2 % Neutrophils # (Auto) 7.06 K/uL Lymphocytes # (Auto) 1.61 K/uL Monocytes # (Auto) 1.14 K/uL Eosinophils # (Auto) 0.11 K/uL Basophils # (Auto) 0.02 K/uL RDW Standard Deviation 40.8 fL RDW Coefficient of Variation 13.3 % Immature Granulocyte % (Auto) 0.8 % Immature Granulocyte # (Auto) 0.08 K/uL Sodium Level 139 mmol/L 140 mmol/L Potassium Level 3.3 mmol/L 3.5 mmol/L Chloride Level 107 mmol/L 108 mmol/L Carbon Dioxide Level 26 mmol/L 25 mmol/L Anion Gap 7.0 mmol/L 7.0 mmol/L Blood Urea Nitrogen 9 mg/dl 7 mg/dl Creatinine 0.88 mg/dl 0.75 mg/dl Est Creatinine Clear Calc Drug Dose 96.8 ml/min 113.6 ml/min Estimated GFR () 105.1 127.5 Estimated GFR (Non- 90.7 110.0 BUN/Creatinine Ratio 10.1 8.7 Random Glucose 91 mg/dl 95 mg/dl Calcium Level 8.7 mg/dl 8.4 mg/dl Magnesium Level 2.0 mg/dl Total Bilirubin 0.3 mg/dl Aspartate Amino Transf (AST/SGOT) 12 U/L Alanine Aminotransferase (ALT/SGPT) 20 U/L Alkaline Phosphatase 52 U/L Total Protein 7.1 gm/dl Albumin 3.2 gm/dl Globulin 3.9 gm/dl Albumin/Globulin Ratio 0.8 Lipase 145 U/L Human Chorionic Gonadotropin, Qual NEG Urine Color DK YELLOW Urine Appearance CLOUDY Urine pH 5.5 Urine Specific [place] 1.028 Urine Protein TRACE Urine Glucose (UA) NEG Urine Ketones TRACE Urine Occult Blood 2+ Urine Nitrite NEG Urine Bilirubin NEG Urine Urobilinogen NEG Urine Leukocyte Esterase MODERATE Urine WBC (Auto) >30 /hpf Urine RBC (Auto) 0-4 /hpf Urine Hyaline Casts (Auto) 10-30 /lpf Urine Epithelial Cells (Auto) >30 /lpf Urine Bacteria (Auto) 1+ Urine Pathogenic Casts 0-3 GRANULAR CASTS /lpf Urine Yeast (Auto) Impression Patient is a 27 year old female with ulcerative pancolitis and possible overlap of IBS which seems to be triggered by her anxiety. She seems to be improving on IV steroids with a reduction of abdominal pain and decrease of her frequency. With the exception of her CRP, her labs are unremarkable. She has acknowledged her severe anxiety and its impact on her GI symptoms and plans to start pharmacologic therapy for this as an outpatient. Plan 1) IV Solumedrol 20 mg BID. Upon discharge, plan to d/c on a Prednisone taper spanning 8 weeks beginning at 40 mg daily and decreasing by 5 mg weekly (40, 35 , 30, 25, 20, 15, 10, 5 mg) 2) Patient is steroid refractory. She has utilized steroids intermittently for over 1 year for her rheumatologic issues as well as her UC. She should be on a daily calcium with vitamin D supplement and will plan for an outpatient DEXA scan when symptoms improve. 3) Recommend checking Infliximab drug trough/antibody testing immediately prior to her next infusion on 12/05. 4) Stool calprotectin. 5) As for her overlap of IBS driven by her anxiety, I agree that the patient would benefit from pharmacologic therapy for anxiety and she reports she is going to begin that as an outpatient. Could consider Ativan prn while hospitalized. Would also try Dicyclomine 20 mg TID as well. 6) Patient has a pending outpatient appointment the first week in December at [facility] with an IBD specialist. She will proceed with that as planned. Our outpatient office is facilitating the transfer of her records. 7) Supportive care per primary team. Thank you for allowing us to participate in the care of this patient. If you should have any further questions or concerns, do not hesitate to contact us. Agree with BUBBA Etienne as above Abd: Soft, NT, ND, +BS Consider decreasing Remicade interval to every 6 weeks Continue current therapy Continue supportive care
[2017-11-26] MEDS: DICYCLOMINE HCL 20 MG TAB PO SCH ×2 (12:54→20:40)
[2017-11-26] MEDS: KETOROLAC TROMETHAMINE 30 MG/ML VIAL IV PRN (15:15)
[2017-11-26] MEDS: CEFTRIAXONE SOD INJ 1 GM in DEXTROSE 5% ADD-VANTAGE 50ML 50 ML IV SCH (15:47)
--- NOTE | 2017-11-26 16:38 | Hospitalist Progress Note ---
Hospitalist Progress Note Date of Service Nov 26, 2017. Subjective Pt evaluation today including: conversation w/ patient, physical exam, chart review, lab review, review of studies, review of inpatient medication list Patient seen and evaluated. Reports feeling slightly better since yesterday. Still with frequent BMs but states N/V resolved currently. She also reports dysuria is resolved. No bleeding She was able to eat a small amount for breakfast and hopefully appetite will increase. Constitutional: No fever, No chills Respiratory: No cough, No shortness of breath Abdomen: + pain (intermittent cramping), + diarrhea, No nausea, No vomiting , No constipation, No GI bleeding Musculoskeletal: No swelling Female : No dysuria Heme: No abnormal bleeding/bruising Skin: No rash Medications Current Inpatient Medications Medications (Trade) Dose Ordered Sig/Felisa Route Start Time Stop Time Status Last Admin Dose Admin Acetaminophen (Tylenol Tab) 650 mg Q4H PRN PO 11/25/17 13:15 12/25/17 13:14 Magnesium Hydroxide (Milk Of Magnesia Susp) 30 ml Q6H PRN PO 11/25/17 13:15 12/25/17 13:14 Ondansetron HCl (Zofran Inj) 4 mg Q6H PRN IV 11/25/17 13:15 12/25/17 13:14 11/26/17 15:21 4 MG Dicyclomine HCl (Bentyl Cap) 10 mg Q6 PRN PO 11/25/17 13:15 12/25/17 13:14 11/26/17 04:57 10 MG Fluticasone Propionate (Flovent Hfa 110MCG Inhaler) 2 puffs BID PRN INH 11/25/17 13:15 12/25/17 13:14 Ondansetron HCl (Zofran Odt) 4 mg Q6H PRN SL 11/25/17 13:15 12/25/17 13:14 Sodium Chloride 1,000 ml @ 100 mls/hr Q10H IV 11/25/17 14:45 12/25/17 14:44 11/26/17 09:21 100 MLS/HR Ceftriaxone Sodium 1 gm/ Dextrose 50 ml @ 100 mls/hr Q24H IV 11/25/17 16:00 12/05/17 15:59 11/26/17 15:47 100 MLS/HR Ketorolac Tromethamine (Toradol Inj) 30 mg Q6H PRN IV 11/25/17 13:45 11/30/17 13:44 11/26/17 15:15 30 MG Methylprednisolone Sodium Succinate 20 mg/Syringe 0.32 ml @ 1.5 mls/min Q12 IV 11/26/17 21:00 12/26/17 20:59 Dicyclomine HCl (Bentyl Tab) 20 mg TID PO 11/26/17 14:00 12/26/17 13:59 11/26/17 12:54 20 MG Lorazepam 0.5 mg/ Syringe 0.5 ml @ 0.5 mls/min Q6 PRN IV 11/26/17 10:15 12/26/17 10:14 Calcium/Vitamin D (Caltrate Plus Tab) 1 tab BID PO 11/26/17 21:00 12/26/17 20:59 Objective Vital Signs Date Time Temp Pulse Resp B/P (MAP) Pulse Ox O2 Delivery O2 Flow Rate FiO2 11/26/17 15:08 37.0 80 16 113/68 (83) 96 11/26/17 14:48 37.0 80 16 105/65 (78) 96 Room Air 11/26/17 11:30 36.9 65 16 104/62 (76) 97 Room Air 11/26/17 08:19 96 Room Air 11/26/17 08:00 Room Air 11/26/17 07:45 37.0 61 16 109/66 (80) 96 Room Air 11/25/17 23:35 Room Air 11/25/17 23:35 37.0 73 16 109/69 (82) 97 Room Air Physical Exam General Appearance: no apparent distress, + thin Eyes: sclerae normal ENT: hearing grossly normal Neck: supple, no JVD, trachea midline Respiratory/Chest: lungs clear, normal breath sounds, no respiratory distress, no accessory muscle use Cardiovascular: regular rate, rhythm, no gallop, no murmur Abdomen: normal bowel sounds, non tender, soft Extremities: no pedal edema Neurologic/Psychiatric: alert, oriented x 3 Skin: normal color, warm/dry Laboratory Results Last 24 Hours Test 11/26/17 05:44 11/26/17 14:05 Sodium Level 140 mmol/L Potassium Level 3.5 mmol/L Chloride Level 108 mmol/L Carbon Dioxide Level 25 mmol/L Anion Gap 7.0 mmol/L Blood Urea Nitrogen 7 mg/dl Creatinine 0.75 mg/dl Est Creatinine Clear Calc Drug Dose 113.6 ml/min Estimated GFR () 127.5 Estimated GFR (Non- 110.0 BUN/Creatinine Ratio 8.7 Random Glucose 95 mg/dl Calcium Level 8.4 mg/dl Assessment and Plan 27 y/o F who was admitted on 11/25 with UC flare Ulcerative Colitis Exacerbation: Failed Outpatient Management - Still with frequent bowel movements but was able to eat small amounts - hopefully will be able to eat more and reduce BMs prior to D/C - she denies any further nausea/vomiting - NSS at 100 mL/hr - Calcium/Vitamin D supplementation - Bentyl 20 mg TID FELISA with PRN dosing; Toradol - Solu-Medrol 20 mg IV BID with plans on 8 week taper on D/C Possible UTI: - UA abnormal - Cx with pinpoint growth and re-incubating - patient states she had some dysuria last night but is resolved currently - Will watch after re-incubation but likely can stop Abx Anxiety/Depression: - Ativan PRN; considering medication induction as outpatient which would be beneficial and may be best to start after this exacerbation calms as GI issues can be common - Patient's affect is rather flat during my visit and would benefit from SSRI or equivalent DVT Prophylaxis: SCDs Disposition: D/C pending clinical improvement Continued [facility] stay due to: multiple IV medications needed Discharge planning: home
[2017-11-26] MEDS ORDERED: PROMETHAZINE HCL INJ 12.5 MG in SODIUM CHLORIDE 0.9% 50ML 50 ML IV STA (19:52)
[2017-11-26] MEDS: CALCIUM 600MG + VIT D 400 IU TAB PO SCH (20:40)
[2017-11-26] MEDS: METHYLPREDNISOLONE IV 20 MG in SYRINGE 0 ML IV SCH (20:40)
[2017-11-27] MEDS: SODIUM CHLORIDE 0.9% 1000ML 1,000 ML IV SCH ×2 (05:08→14:47)
[2017-11-27 07:30] VITALS: BP 124/74; PULSE 50; TEMP 36.9; O2SAT 97
[2017-11-27] MEDS: KETOROLAC TROMETHAMINE 30 MG/ML VIAL IV PRN (07:39)
[2017-11-27 08:10] VITALS: O2SAT 97
[2017-11-27] MEDS: METHYLPREDNISOLONE IV 20 MG in SYRINGE 0 ML IV SCH ×2 (09:04→21:05)
[2017-11-27] MEDS: CALCIUM 600MG + VIT D 400 IU TAB PO SCH ×2 (09:04→21:06)
[2017-11-27] MEDS: DICYCLOMINE HCL 20 MG TAB PO SCH ×3 (09:05→21:06)
--- NOTE | 2017-11-27 11:09 | Gastroenterology Progress Note ---
Progress Note Date of Service: Nov 27, 2017 Subjective Pt evaluation today including: conversation w/ patient, physical exam, lab review, review of studies Patient is a 27 yo female hospitalized with an ulcerative colitis flare. She reports that she is feeling slightly better this morning. She thinks she may be interested in going home soon. She feels better from a n/v standpoint when given Phenergan. She continues on IV steroids. Her labs are unremarkable. A fecal calprotectin is pending. She offers no further new complaints. She reports 8 bowel movements in the past 24 hours. She denies bleeding. She reports abdominal cramping. She is eating a light diet, mainly toast. Review of Systems Constitutional: No fever, No chills Respiratory: No cough, No shortness of breath Cardiac: No chest pain Abdomen: + pain, + diarrhea, No nausea, No vomiting Musculoskeletal: No joint pain Neuro: No problem reported Psych: + anxiety Skin: No problem reported Medications Current Inpatient Medications Medications (Trade) Dose Ordered Sig/Felisa Route Start Time Stop Time Status Last Admin Dose Admin Acetaminophen (Tylenol Tab) 650 mg Q4H PRN PO 11/25/17 13:15 12/25/17 13:14 Magnesium Hydroxide (Milk Of Magnesia Susp) 30 ml Q6H PRN PO 11/25/17 13:15 12/25/17 13:14 Ondansetron HCl (Zofran Inj) 4 mg Q6H PRN IV 11/25/17 13:15 12/25/17 13:14 11/26/17 15:21 4 MG Dicyclomine HCl (Bentyl Cap) 10 mg Q6 PRN PO 11/25/17 13:15 12/25/17 13:14 11/26/17 04:57 10 MG Fluticasone Propionate (Flovent Hfa 110MCG Inhaler) 2 puffs BID PRN INH 11/25/17 13:15 12/25/17 13:14 Ondansetron HCl (Zofran Odt) 4 mg Q6H PRN SL 11/25/17 13:15 12/25/17 13:14 Sodium Chloride 1,000 ml @ 100 mls/hr Q10H IV 11/25/17 14:45 12/25/17 14:44 11/27/17 05:08 100 MLS/HR Ceftriaxone Sodium 1 gm/ Dextrose 50 ml @ 100 mls/hr Q24H IV 11/25/17 16:00 12/05/17 15:59 11/26/17 15:47 100 MLS/HR Ketorolac Tromethamine (Toradol Inj) 30 mg Q6H PRN IV 11/25/17 13:45 11/30/17 13:44 11/27/17 07:39 30 MG Methylprednisolone Sodium Succinate 20 mg/Syringe 0.32 ml @ 1.5 mls/min Q12 IV 11/26/17 21:00 12/26/17 20:59 11/27/17 09:04 1.5 MLS/MIN Dicyclomine HCl (Bentyl Tab) 20 mg TID PO 11/26/17 14:00 12/26/17 13:59 11/27/17 09:05 20 MG Lorazepam 0.5 mg/ Syringe 0.5 ml @ 0.5 mls/min Q6 PRN IV 11/26/17 10:15 12/26/17 10:14 Calcium/Vitamin D (Caltrate Plus Tab) 1 tab BID PO 11/26/17 21:00 12/26/17 20:59 11/27/17 09:04 1 TAB Objective Vital Signs Date Time Temp Pulse Resp B/P (MAP) Pulse Ox O2 Delivery O2 Flow Rate FiO2 11/27/17 08:10 97 Room Air 11/27/17 07:30 Room Air 11/26/17 23:35 Room Air 11/26/17 23:20 37.0 65 16 100/57 (71) 96 Room Air 11/26/17 15:15 96 Room Air 11/26/17 15:08 37.0 80 16 113/68 (83) 96 11/26/17 14:48 37.0 80 16 105/65 (78) 96 Room Air 11/26/17 11:30 36.9 65 16 104/62 (76) 97 Room Air Physical Exam General Appearance: WD/WN, no apparent distress Eyes: normal inspection, PERRL ENT: hearing grossly normal Respiratory/Chest: lungs clear, normal breath sounds Cardiovascular: regular rate, rhythm Abdomen: normal bowel sounds, non tender, soft Extremities: non-tender Neurologic/Psych: alert, oriented x 3 Skin: normal color Laboratory Results Last 24 Hours Test 11/26/17 14:05 11/27/17 08:16 Assessment and Plan Patient is a 27 yo female with ulcerative colitis. She is improving on IV steroids. 1) Plan for Remicade infusion on 12/01. Obtain drug trough/antibody levels immediately prior to infusion. Pending results will evaluate the need to decrease interval between infusions or increase dosage. 2) Await fecal calprotectin level. 3) Continue IV Solumedrol 20 mg BID. Plan to d/c on 8 week steroid taper as previously outlined. 4) Continue calcium & vitamin D supplementation. 5) Continue Dicyclomine 20 mg TID. Will need rx for this on d/c. 6) Prioritize outpatient appointment for anxiety to begin pharmacologic therapy. 7) Continue alternating Zofran & Phenergan for n/v. Will need po antiemetics on d/c. 8) Proceed with appointment with Dr. Jolly on 12/04/17. 9) Diet as tolerated, avoid high fiber and high fat. Thank you for allowing us to participate in the care of this patient. If you should have any further questions or concerns, do not hesitate to contact us. Agree with BUBBA Etienne as above Abd: Soft, NT, ND, +BS Continue current therapy Continue supportive care Will get Remicade infusion on Friday
[2017-11-27] MEDS: DICYCLOMINE HCL 10 MG CAP PO PRN (16:08)
[2017-11-27] MEDS: ONDANSETRON INJ 2 MG/ML 2 ML VIAL IV PRN (17:37)
--- NOTE | 2017-11-27 18:02 | Hospitalist Progress Note ---
Hospitalist Progress Note Date of Service Nov 27, 2017. Subjective Pt evaluation today including: conversation w/ patient, physical exam, chart review, review of studies, review of inpatient medication list Patient seen and evaluated. Did have an episode of emesis last night after attempting to eat. Has since resolved. Still eating minimal food but feels she might be a bit better. Diarrhea minimally improved from 10 to 7 bowel movements. Still with intermittent cramping. Constitutional: No fever, No chills Respiratory: No cough, No shortness of breath Cardiovascular: No chest pain Abdomen: + pain (intermittent cramping), + nausea (intermittent), + vomiting (x 1 last evening), + diarrhea, No GI bleeding Musculoskeletal: No calf pain Female : No dysuria Heme: No abnormal bleeding/bruising Medications Current Inpatient Medications Medications (Trade) Dose Ordered Sig/Felisa Route Start Time Stop Time Status Last Admin Dose Admin Acetaminophen (Tylenol Tab) 650 mg Q4H PRN PO 11/25/17 13:15 12/25/17 13:14 Magnesium Hydroxide (Milk Of Magnesia Susp) 30 ml Q6H PRN PO 11/25/17 13:15 12/25/17 13:14 Ondansetron HCl (Zofran Inj) 4 mg Q6H PRN IV 11/25/17 13:15 12/25/17 13:14 11/26/17 15:21 4 MG Dicyclomine HCl (Bentyl Cap) 10 mg Q6 PRN PO 11/25/17 13:15 12/25/17 13:14 11/27/17 16:08 10 MG Fluticasone Propionate (Flovent Hfa 110MCG Inhaler) 2 puffs BID PRN INH 11/25/17 13:15 12/25/17 13:14 Ondansetron HCl (Zofran Odt) 4 mg Q6H PRN SL 11/25/17 13:15 12/25/17 13:14 Sodium Chloride 1,000 ml @ 100 mls/hr Q10H IV 11/25/17 14:45 12/25/17 14:44 11/27/17 14:47 100 MLS/HR Ketorolac Tromethamine (Toradol Inj) 30 mg Q6H PRN IV 11/25/17 13:45 11/30/17 13:44 11/27/17 07:39 30 MG Methylprednisolone Sodium Succinate 20 mg/Syringe 0.32 ml @ 1.5 mls/min Q12 IV 11/26/17 21:00 12/26/17 20:59 11/27/17 09:04 1.5 MLS/MIN Dicyclomine HCl (Bentyl Tab) 20 mg TID PO 11/26/17 14:00 12/26/17 13:59 11/27/17 13:32 20 MG Lorazepam 0.5 mg/ Syringe 0.5 ml @ 0.5 mls/min Q6 PRN IV 11/26/17 10:15 12/26/17 10:14 Calcium/Vitamin D (Caltrate Plus Tab) 1 tab BID PO 11/26/17 21:00 12/26/17 20:59 11/27/17 09:04 1 TAB Objective Vital Signs Date Time Temp Pulse Resp B/P (MAP) Pulse Ox O2 Delivery O2 Flow Rate FiO2 11/27/17 16:00 Room Air 11/27/17 08:10 97 Room Air 11/27/17 07:30 Room Air 11/27/17 07:30 36.9 50 16 124/74 (91) 97 Room Air 11/26/17 23:35 Room Air 11/26/17 23:20 37.0 65 16 100/57 (71) 96 Room Air Physical Exam General Appearance: WD/WN, + thin Eyes: sclerae normal ENT: hearing grossly normal Neck: supple, no JVD Respiratory/Chest: lungs clear, normal breath sounds, no respiratory distress, no accessory muscle use Cardiovascular: regular rate, rhythm, no gallop, no murmur Abdomen: normal bowel sounds, non tender, soft Extremities: no pedal edema Neurologic/Psychiatric: alert, oriented x 3 Skin: normal color, warm/dry Assessment and Plan 27 y/o F who was admitted on 11/25 with UC flare Ulcerative Colitis Exacerbation: Failed Outpatient Management - Slowly improving with some less bowel movements; did have some vomiting last night but none today - NSS at 100 mL/hr - Calcium/Vitamin D supplementation - Bentyl 20 mg TID FELISA with PRN dosing; Toradol - Solu-Medrol 20 mg IV BID with plans on 8 week taper on D/C Possible UTI: - UA abnormal - Cx with pinpoint growth and asymptomatic - will D/C Abx Anxiety/Depression: - Ativan PRN; considering medication induction as outpatient which would be beneficial and may be best to start after this exacerbation calms as GI issues can be common - Patient's affect is rather flat during my visit and would benefit from SSRI or equivalent DVT Prophylaxis: SCDs Disposition: D/C pending clinical improvement - possible next 1-2 days if tolerating diet and manageable diarrhea Continued [facility] stay due to: multiple IV medications needed Discharge planning: home
[2017-11-27] MEDS: LORAZEPAM INJ 0.5 MG in SYRINGE 0.25 ML IV PRN (21:54)
[2017-11-27 23:06] VITALS: BP 119/75; PULSE 52; TEMP 36.8; O2SAT 97
[2017-11-28] MEDS: SODIUM CHLORIDE 0.9% 1000ML 1,000 ML IV SCH ×2 (01:44→12:31)
[2017-11-28 07:16] VITALS: BP 125/78; PULSE 53; TEMP 36.9; O2SAT 97
[2017-11-28] MEDS: CALCIUM 600MG + VIT D 400 IU TAB PO SCH ×2 (09:24→21:04)
[2017-11-28] MEDS: METHYLPREDNISOLONE IV 20 MG in SYRINGE 0 ML IV SCH ×2 (09:24→21:03)
[2017-11-28] MEDS: DICYCLOMINE HCL 20 MG TAB PO SCH ×3 (09:24→21:03)
[2017-11-28 09:32] LABS: CALCIUM 8.5 mg/dl (8.5-10.1); CREATININE 0.73 mg/dl (0.60-1.20); POTASSIUM 3.5 mmol/L (3.5-5.1)
[2017-11-28] MEDS: KETOROLAC TROMETHAMINE 30 MG/ML VIAL IV PRN (10:04)
--- NOTE | 2017-11-28 10:15 | Gastroenterology Progress Note ---
Progress Note Date of Service: Nov 28, 2017 Subjective Pt evaluation today including: conversation w/ patient, physical exam, lab review, review of studies Patient is a 27 yo female with ulcerative pancolitis. She reports unpredictable bowel habits. She reports that she was feeling great around 5:00 when she was seen by Dr. Nur & myself. Then she reports that overnight she had urgency with 11 episodes of diarrhea. She reports that her nausea & vomiting is improving. She is only tolerating a very light diet. She denies rectal bleeding. She is very anxious. 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 She wants to move. Her mood is much more upbeat when her fiance, Tamika, is around. A fecal calprotectin is pending. Review of Systems Constitutional: No fever Respiratory: No cough, No shortness of breath Cardiac: No chest pain Abdomen: + diarrhea, No pain, No nausea, No vomiting, No constipation Musculoskeletal: No joint pain Psych: + depression symptoms, + anxiety Skin: No problem reported Medications Current Inpatient Medications Medications (Trade) Dose Ordered Sig/Felisa Route Start Time Stop Time Status Last Admin Dose Admin Acetaminophen (Tylenol Tab) 650 mg Q4H PRN PO 11/25/17 13:15 12/25/17 13:14 Magnesium Hydroxide (Milk Of Magnesia Susp) 30 ml Q6H PRN PO 11/25/17 13:15 12/25/17 13:14 Ondansetron HCl (Zofran Inj) 4 mg Q6H PRN IV 11/25/17 13:15 12/25/17 13:14 11/27/17 17:37 4 MG Dicyclomine HCl (Bentyl Cap) 10 mg Q6 PRN PO 11/25/17 13:15 12/25/17 13:14 11/27/17 16:08 10 MG Fluticasone Propionate (Flovent Hfa 110MCG Inhaler) 2 puffs BID PRN INH 11/25/17 13:15 12/25/17 13:14 Ondansetron HCl (Zofran Odt) 4 mg Q6H PRN SL 11/25/17 13:15 12/25/17 13:14 Sodium Chloride 1,000 ml @ 100 mls/hr Q10H IV 11/25/17 14:45 12/25/17 14:44 11/28/17 01:44 100 MLS/HR Ketorolac Tromethamine (Toradol Inj) 30 mg Q6H PRN IV 11/25/17 13:45 11/30/17 13:44 11/28/17 10:04 30 MG Methylprednisolone Sodium Succinate 20 mg/Syringe 0.32 ml @ 1.5 mls/min Q12 IV 11/26/17 21:00 12/26/17 20:59 11/28/17 09:24 1.5 MLS/MIN Dicyclomine HCl (Bentyl Tab) 20 mg TID PO 11/26/17 14:00 12/26/17 13:59 11/28/17 09:24 20 MG Lorazepam 0.5 mg/ Syringe 0.5 ml @ 0.5 mls/min Q6 PRN IV 11/26/17 10:15 12/26/17 10:14 11/27/17 21:54 0.5 MLS/MIN Calcium/Vitamin D (Caltrate Plus Tab) 1 tab BID PO 11/26/17 21:00 12/26/17 20:59 11/28/17 09:24 1 TAB Objective Vital Signs Date Time Temp Pulse Resp B/P (MAP) Pulse Ox O2 Delivery O2 Flow Rate FiO2 11/28/17 07:16 36.9 53 16 125/78 (94) 97 Room Air 11/28/17 00:00 Room Air 11/27/17 23:06 36.8 52 14 119/75 (90) 97 Room Air 11/27/17 16:00 Room Air Physical Exam General Appearance: WD/WN, no apparent distress Eyes: normal inspection, PERRL ENT: hearing grossly normal Respiratory/Chest: chest non-tender, lungs clear, normal breath sounds Cardiovascular: regular rate, rhythm Abdomen: normal bowel sounds, non tender, soft Extremities: non-tender Neurologic/Psych: alert, oriented x 3 Skin: normal color Laboratory Results Last 24 Hours Test 11/28/17 08:49 Sodium Level 141 mmol/L Potassium Level 3.5 mmol/L Chloride Level 107 mmol/L Carbon Dioxide Level 26 mmol/L Anion Gap 8.0 mmol/L Blood Urea Nitrogen 7 mg/dl Creatinine 0.73 mg/dl Est Creatinine Clear Calc Drug Dose 116.7 ml/min Estimated GFR () 131.7 Estimated GFR (Non- 113.7 BUN/Creatinine Ratio 9.5 Random Glucose 115 mg/dl Calcium Level 8.5 mg/dl Assessment and Plan Patient is a 27 yo female with ulcerative colitis. She is improving on IV steroids. Her symptoms are inconsistent and she is definitely triggered by psychosocial factors. Her fecal calprotectin is pending. 1) Plan for Remicade infusion on 12/01. Obtain drug trough/antibody levels immediately prior to infusion. Pending results will evaluate the need to decrease interval between infusions or increase dosage. 2) Await fecal calprotectin level. 3) Continue IV Solumedrol 20 mg BID. Plan to d/c on 8 week steroid taper as previously outlined. 4) Continue calcium & vitamin D supplementation. 5) Continue Dicyclomine 20 mg TID. Will need rx for this on d/c. 6) Prioritize outpatient appointment for anxiety to begin pharmacologic therapy. 7) Continue alternating Zofran & Phenergan for n/v. Will need po antiemetics on d/c. 8) Proceed with appointment with Dr. Jolly at [facility] on . 9) Diet as tolerated, avoid high fiber and high fat. Thank you for allowing us to participate in the care of this patient. If you should have any further questions or concerns, do not hesitate to contact us. Agree with BUBBA Etienne as above Abd: Soft, NT, ND, +BS Continue current therapy as above Scheduled for Remicade infusion on Friday, prior to this will have lab studies for Remicade trough and Ab levels
[2017-11-28 14:57] VITALS: BP 122/63; PULSE 54; TEMP 36.7; O2SAT 97
--- NOTE | 2017-11-28 19:01 | Hospitalist Progress Note ---
Hospitalist Progress Note Date of Service Nov 28, 2017. Subjective Pt evaluation today including: conversation w/ patient, conversation w/ family , physical exam, chart review, lab review, conversation w/ retail sales consultant (GI - Emerita Curry PA-C), review of inpatient medication list Patient seen and evaluated. No acute events overnight. Reports some overall improvement but still not completely baseline which is to be expected. Reports being able to eat a full lunch which is the first time she was able to do that. No emesis today. Discussed with patient and her significant other at bedside. As patient would like to return home but planning on transitioning to orals tomorrow morning and to assess tolerance prior to deciding on D/C home. Verbalized no complaints at this time. Appears objectively to be looking better and spirits more improved. Bowel movements are slowly decreasing. Constitutional: No fever, No chills Respiratory: No cough, No shortness of breath Cardiovascular: No chest pain Abdomen: + pain (intermittent cramping), + diarrhea, No nausea, No vomiting , No constipation, No GI bleeding Musculoskeletal: No swelling, No calf pain Female : No dysuria Heme: No abnormal bleeding/bruising Skin: No rash Medications Current Inpatient Medications Medications (Trade) Dose Ordered Sig/Felisa Route Start Time Stop Time Status Last Admin Dose Admin Acetaminophen (Tylenol Tab) 650 mg Q4H PRN PO 11/25/17 13:15 12/25/17 13:14 Magnesium Hydroxide (Milk Of Magnesia Susp) 30 ml Q6H PRN PO 11/25/17 13:15 12/25/17 13:14 Ondansetron HCl (Zofran Inj) 4 mg Q6H PRN IV 11/25/17 13:15 12/25/17 13:14 11/27/17 17:37 4 MG Dicyclomine HCl (Bentyl Cap) 10 mg Q6 PRN PO 11/25/17 13:15 12/25/17 13:14 11/27/17 16:08 10 MG Fluticasone Propionate (Flovent Hfa 110MCG Inhaler) 2 puffs BID PRN INH 11/25/17 13:15 12/25/17 13:14 Ondansetron HCl (Zofran Odt) 4 mg Q6H PRN SL 11/25/17 13:15 12/25/17 13:14 Sodium Chloride 1,000 ml @ 100 mls/hr Q10H IV 11/25/17 14:45 12/25/17 14:44 11/28/17 12:31 100 MLS/HR Ketorolac Tromethamine (Toradol Inj) 30 mg Q6H PRN IV 11/25/17 13:45 11/30/17 13:44 11/28/17 10:04 30 MG Methylprednisolone Sodium Succinate 20 mg/Syringe 0.32 ml @ 1.5 mls/min Q12 IV 11/26/17 21:00 11/28/17 23:00 11/28/17 09:24 1.5 MLS/MIN Dicyclomine HCl (Bentyl Tab) 20 mg TID PO 11/26/17 14:00 12/26/17 13:59 11/28/17 13:44 20 MG Lorazepam 0.5 mg/ Syringe 0.5 ml @ 0.5 mls/min Q6 PRN IV 11/26/17 10:15 12/26/17 10:14 11/27/17 21:54 0.5 MLS/MIN Calcium/Vitamin D (Caltrate Plus Tab) 1 tab BID PO 11/26/17 21:00 12/26/17 20:59 11/28/17 09:24 1 TAB Prednisone (PredniSONE TAB) 40 mg DAILY PO 11/29/17 09:00 12/29/17 08:59 UNV Objective Vital Signs Date Time Temp Pulse Resp B/P (MAP) Pulse Ox O2 Delivery O2 Flow Rate FiO2 11/28/17 14:57 36.7 54 18 122/63 (82) 97 Room Air 11/28/17 07:50 Room Air 11/28/17 07:16 36.9 53 16 125/78 (94) 97 Room Air 11/28/17 00:00 Room Air 11/27/17 23:06 36.8 52 14 119/75 (90) 97 Room Air Physical Exam General Appearance: WD/WN, no apparent distress Eyes: sclerae normal ENT: hearing grossly normal Neck: supple, no JVD, trachea midline Respiratory/Chest: lungs clear, normal breath sounds, no respiratory distress, no accessory muscle use Cardiovascular: regular rate, rhythm, no gallop, no murmur Abdomen: normal bowel sounds, non tender, soft Extremities: no pedal edema Neurologic/Psychiatric: alert, oriented x 3 Skin: normal color, warm/dry Laboratory Results Last 24 Hours Test 11/28/17 08:49 Sodium Level 141 mmol/L Potassium Level 3.5 mmol/L Chloride Level 107 mmol/L Carbon Dioxide Level 26 mmol/L Anion Gap 8.0 mmol/L Blood Urea Nitrogen 7 mg/dl Creatinine 0.73 mg/dl Est Creatinine Clear Calc Drug Dose 116.7 ml/min Estimated GFR () 131.7 Estimated GFR (Non- 113.7 BUN/Creatinine Ratio 9.5 Random Glucose 115 mg/dl Calcium Level 8.5 mg/dl Assessment and Plan 27 y/o F who was admitted on 11/25 with UC flare Ulcerative Colitis Exacerbation: Failed Outpatient Management - Some bigger strides today as patient was able to eat more of a lunch today and no acute exacerbations of nausea/vomiting/diarrhea but still having some cramping pain - NSS at 100 mL/hr - Calcium/Vitamin D supplementation - Bentyl 20 mg TID FELISA with PRN dosing; Toradol - Solu-Medrol 20 mg IV BID to stop tonight and start orals tomorrow to test tolerance prior to D/C and will then have an 8 week taper on D/C Possible UTI: - UA abnormal - Cx with pinpoint growth and remains asymptomatic - will D/C Abx Anxiety/Depression: - Ativan PRN; considering medication induction as outpatient which would be beneficial and may be best to start after this exacerbation calms as GI issues can be common on first initiation. - Discussed her anxiety more in detail today with patient and her significant other. Ativan seems to be helping especially at night. Did discuss getting established with a psychiatrist as well for medications as we discussed possible SSRI (again after exacerbation due to possible initial side effects) as this can help calm anxiety/depression but may benefit from a short course of Ativan DVT Prophylaxis: SCDs Disposition: Will convert to orals in the AM and monitor tolerance possible D/C tomorrow. Patient is stable however is still actively in an exacerbation which would warrant further stay but would be stable to go home if comfortable and tolerating orals Continued [facility] stay due to: multiple IV medications needed Discharge planning: home
[2017-11-28] MEDS: LORAZEPAM INJ 0.5 MG in SYRINGE 0.25 ML IV PRN (22:37)
[2017-11-28 23:10] VITALS: BP 125/63; PULSE 68; TEMP 37.2; O2SAT 96
[2017-11-29] MEDS: SODIUM CHLORIDE 0.9% 1000ML 1,000 ML IV SCH ×2 (00:25→08:49)
[2017-11-29 07:02] VITALS: BP 130/75; PULSE 56; TEMP 37; O2SAT 97
[2017-11-29] MEDS: DICYCLOMINE HCL 20 MG TAB PO SCH (08:43)
[2017-11-29] MEDS: CALCIUM 600MG + VIT D 400 IU TAB PO SCH (08:43)
[2017-11-29] MEDS ORDERED: BNT20 PO (12:20)
[2017-11-29] MEDS ORDERED: KETO10TA PO (12:20)
[2017-11-29] MEDS ORDERED: PRED10TA PO (12:20)
[2017-11-29] MEDS ORDERED: CALCTAB7 PO (12:20)
[2017-11-29] MEDS ORDERED: PROC10TA PO (12:20)
[2017-11-29] MEDS ORDERED: ONDA4TAB10 SL (12:20)
[2017-11-29] MEDS ORDERED: PROM25TA9 PO (12:28)
--- NOTE | 2017-11-29 12:29 | Discharge Instructions ---
Discharge Instructions Date of Service Nov 29, 2017. Admission Reason for Admission: Exacerbation Of Ulcerative Colitis Discharge Discharge Diagnosis / Problem: Exacerbation of Ulcerative Colitis Discharge Goals Goal(s): Decrease discomfort, Improve function, Increase independence Activity Recommendations Activity Limitations: resume your previous activity . Instructions / Follow-Up Instructions / Follow-Up Ulcerative Colitis: - You will be on a steroid taper as follows. Start this tomorrow 11/30. This will be a slow 8 week taper -- Prednisone 40 mg x 7 days -- Prednisone 35 mg x 7 days -- Prednisone 30 mg x 7 days -- Prednisone 25 mg x 7 days -- Prednisone 20 mg x 7 days -- Prednisone 15 mg x 7 days -- Prednisone 10 mg x 7 days -- Prednisone 5 mg x 7 days - Recommend to continue Calcium/Vitamin D supplementation due to ongoing steroids. - Can use Bentyl 20 mg three times a day while cramping is more problematic. As this reduces you can switch to just as needed - Will send you with a prescription for Zofran for nausea and Phenergan to take is the Zofran does not work - Recommend to continue a low fiber diet and low fat diet during this exacerbation - You have an appointment with the cancer center to have your Remicade on Friday. Please have the blood work done prior. Follow-Up: Please, follow up at [facility] with Dr. Beard on FridayDecember 02 at 9:20 am. *If you need to change this appointment, call the clinic at [phone]." - Proceed with appointment with Dr. Jolly on 12/04/17 Current Hospital Diet Patient's current hospital diet: Low Fiber Diet Discharge Diet Recommended Diet: Low Fiber Diet, Low Fat Diet Pending Studies Studies pending at discharge: yes List of pending studies: Stool calprotectin Medical Emergencies . Who to Call and When: Medical Emergencies: If at any time you feel your situation is an emergency, please call 911 immediately. . Non-Emergent Contact Non-Emergency issues call your: Primary Care Provider Call Non-Emergent contact if: you have a fever, your pain is concerning you, you have any medication questions . . "Provider Documentation" section prepared by Coco Sanchez. .
[2017-11-29] MEDS ORDERED: LORA-741 PO (12:55)
[2017-11-29 13:26] VITALS: BP 130/75; PULSE 56; TEMP 37; O2SAT 97
--- NOTE | 2017-11-29 17:49 | Discharge Summary ---
Discharge Summary Date of Service Nov 29, 2017. Discharge Summary Admission Date: Nov 25, 2017 at 13:17 Discharge Date: Nov 29, 2017 Discharge Disposition: Home Principal Diagnosis: Ulcerative Colitis Exacerbation Problems/Secondary Diagnoses: 1. Asthma 2. Ulcerative Colitis 3. Anxiety Procedures: ABDOMEN 2VIEW W/PA CHEST RTN FINDINGS: Cardiomediastinal silhouette normal. Lungs and pleural spaces clear. Nonobstructive bowel gas pattern. No gross pneumoperitoneum. Allowing for bowel gas and stool, no calcifications to suggest nephrolithiasis. Osseous structures normal. IMPRESSION: 1. No acute cardiopulmonary disease. 2. No radiographic evidence of acute intra-abdominal pathology. Consultations: 1. Gastroenterology Medication Reconciliation New Medications: Ketorolac Tromethamine (Toradol) 10 Mg Tab 10 MG PO Q6H PRN for Pain for 5 Days, #20 TAB Lorazepam (Ativan) 0.5 Mg Tab 0.5 MG PO Q8H PRN for Anxiety, #30 TAB Promethazine Hcl (Phenergan) 25 Mg Tab 12.5 MG PO Q6H PRN for Nausea for 5 Days, #10 TAB For breakthrough nausea Calcium Carbonate-Vitamin D W/ (Caltrate 600 Plus) 1 Tab Tab 1 TAB PO BID for 30 Days, #60 TAB Dicyclomine HCl (Dicyclomine HCl) 20 Mg Tab 20 MG PO TID for 30 Days, #90 TAB Changed Medications: Prednisone (Prednisone) 10 Mg Tab 10 MG PO UD, #126 TABS (Changed from: DAILY) Start with 40 mg daily x 7 days then decrease by 5 mg each week Continued Medications: Albuterol Hfa (Ventolin Hfa) Unknown Strength Aers Unknown Dose INH Q6H PRN for SOB/Wheezing Dicyclomine HCl (Dicyclomine HCl) 10 Mg Cap 10 MG PO Q6 PRN for abdominal cramps, #30 CAP 0 Refills Fluticasone Propionate (Flovent Hfa) 120 Puffs/22054 Mcg Aero 2 PUFFS INH BID PRN for SOB/Wheezing Infliximab (Remicade) 100 Mg/10 Ml Inj 1 DOSE IV Q4-6WKS Medroxyprogesterone Acetate (Depo-Provera) 400 Mg/Ml Inj 1 DOSE INJ Q3MO Ondasetron Odt (Zofran Odt) 4 Mg Tab 4 MG SL Q6H PRN for Nausea for 14 Days, #56 TABS (This prescription has been renewed) Discharge Exam REVIEW OF SYSTEMS: Constitutional: No fever, No chills Respiratory: No cough, No shortness of breath Cardiovascular: No chest pain Abdomen: + pain (intermittent cramping), + diarrhea, No nausea, No vomiting, No constipation, No GI bleeding Musculoskeletal: No swelling, No calf pain Female : No dysuria Heme: No abnormal bleeding/bruising Skin: No rash PHYSICAL EXAMS: General Appearance: WD/WN, no apparent distress Eyes: sclerae normal ENT: hearing grossly normal Neck: supple, no JVD, trachea midline Respiratory/Chest: lungs clear, normal breath sounds, no respiratory distress, no accessory muscle use Cardiovascular: regular rate, rhythm, no gallop, no murmur Abdomen: normal bowel sounds, non tender, soft Extremities: no pedal edema Neurologic/Psychiatric: alert, oriented x 3 Skin: normal color, warm/dry Hospital Course ADMISSION: 27 y/o F c/o UC flare. Pt states her sx started about a week ago with diffuse abd cramping, n/v/d. She was seen in the ED two days ago and offered admission, but was feeling improved s/p ED interventions and elected for outpt tx with steroids and zofran. She was seen by Dr. Nur yesterday who changed her Usaris to prednisone and recommended for f/u with IBD clinic in [place] given her ongoing issues with maintenance therapy. Pt continued to having worsening cramping, n/v/d. She threw up her meds this AM and so she came to the ED for further assessment. Pt is s/p IVF, toradol, and phenergan in the ED. She did not receive steroids in the ED. She is feeling improved overall. No further abd pain. She has been urinating without issue. No blood in stool or emesis. Pt has been on Usaris for several months. The initial plan was to use this medication for 2 months and then transition to something else. Pt was traveling and requested to stay on Usaris as attempts to come off in the past have lead to UC flares. This was granted, however she had not followed up yet for new plans. She states she misses maybe 1 dose per month. Pt denies fever, SOB, chest pain, LE pain or swelling. Pt is on depo-provera and denies missing injections. She does get occasional spotting, but not full periods. She is not certain if she has cramping related to her menstrual cycles or her UC at times, but the ongoing cramping she has been having the last week is more severe than other cramping she has. HOSPITAL COURSE: Ulcerative Colitis Exacerbation: - Tolerating diet better and no further emesis. Still with frequent bowel movements that seem to come in little exacerbations but cramping abdominal pain is improving - Will continue Calcium/Vitamin D supplementation given chronic steroids - Prednisone taper x 8 weeks - starting with 40 mg then tapering by 5 mg weekly - Bentyl 20 mg TID WALESKA; Toradol PRN; Zofran PRN; Phenergan for breakthrough nausea - Due for Remicade on Friday; Appt with [facility] on 12/04; F/U with [facility] this week Anxiety/Depression: - Ativan PRN; considering medication induction as outpatient which would be beneficial and may be best to start after this exacerbation calms as GI issues can be common on first initiation Ativan seems to be helping especially at night. Did discuss getting established with a psychiatrist as well for medications as we discussed possible SSRI ( again after exacerbation due to possible initial side effects) as this can help calm anxiety/depression but may benefit from a short course of Ativan. Was provided a small Rx Total Time Spent: Greater than 30 minutes This includes examination of the patient, discharge planning, medication reconciliation, and communication with other providers. Discharge Instructions Please refer to the electronic Patient Visit Report (Discharge Instructions) for additional information. Additional Copies To [facility]
--- NOTE | 2017-12-03 06:52 | EDITING REQUIRED CODING QUERY ---
To promote full compliance with coding requirements relating to patient care, provider participation is requested in all cases of swine genetics researcher uncertainty. Please assist us with the question(s) below: Coding Question(s): The diagnosis below was documented in the H&P and progress notes, then subsequently fell off further documentation on Discharge Summary. Please indicate if it is still a possible diagnosis or ruled out. Physician's Response(s): POSSIBLE UTI ( ) Diagnosed and POA ( ) Diagnosed and not POA ( x ) Ruled out ( ) Other (please specify)
== END 2017-11-29 13:57 | disposition home or self-care (01) | DRG 387 ==
LOC: C.EDB 10:03 → C.MSW 13:17 → ENRESERV 13:42
PROVIDERS: ADMIT Family Medicine; ATTEND Internal Medicine
DX: K51.90 Ulcerative colitis, unspecified, without complications (principal); R82.79 Other abnormal findings on microbiological examination of urine; E86.0 Dehydration; J45.909 Unspecified asthma, uncomplicated; F41.9 Anxiety disorder, unspecified; F32.9 Major depressive disorder, single episode, unspecified; Z79.899 Other long term (current) drug therapy; Z79.52 Long term (current) use of systemic steroids; Z83.3 Family history of diabetes mellitus